=== PATIENT | male | born 1955 | race Caucasian/White ===

== ENCOUNTER 2017-04-23 01:54 | Inpatient (IN) | payer MEDICAID, MEDICARE ==
[2017-04-23] VITALS (19 sets, daily range): BP systolic 87–175; BP diastolic 54–96; PULSE 55–99; RESP 12–17; O2SAT 93–100
[~2017-04-23] VITALS: Ht 175.3 cm; Wt 86.7 kg
[~2017-04-23 01:54] MED LIST: PROZ20 PO; XVIS2550 PO
[2017-04-23] MEDS ORDERED: Dexamethasone 10 mg/mL Inj ONE (02:02)
[2017-04-23] MEDS ORDERED: Famotidine 20 mg/50 mL NS Premix IV ONE (02:02)
[2017-04-23] MEDS ORDERED: Epinephrine Racemic 2.25% 0.5 mL Inhalation Solution NEB ONE (02:05)
--- NOTE | 2017-04-23 02:35 | ED.REPORT ---
HPI-General Illness Date of Service Apr 23, 2017 ED Provider: Mark Ulloa MD Pt is an otherwise healthy 62 year old male who presents to the ED complaining of tongue swelling prior to arrival. He denies difficulty breathing currently, hives, and any other symptoms. Pt reports that he did not eat anything unusual. Per pt, he went to bed without tongue swelling then woke with severe tongue swelling. He denies any known allergies and reports that he currently takes Effexor, Seroquel, and Lopressor. Nursing Notes Stated Complaint: SWOLLEN TONGUE Chief Complaint: Allergic Reaction Nursing Notes Reviewed: Yes Allergies: Coded Allergies: No Known Allergies (Unverified Allergy, Unknown, 04/23/17) Scheduled FLUoxetine-Expunged Drug, Do not Renew! (Prozac-Expunged Drug, Do not Renew!) 20 Mg Cap 20 MG PO AM Scheduled PRN Hydroxyzine Jocy-Expunged Drug, Do Not Renew! (Vistaril-Expunged Drug, Do Not Renew!) 25 Mg Tab 25 MG PO BID PRN PRN General Time Seen by MD: 02:03 Chief Complaint Other (Tongue swelling) Hx Obtained From: Patient Arrived By: Walk-in Onset Occurred: 1 - 4 hours ago Symptom Duration: Since onset Severity: Current: No pain currently Severity: Maximum: No pain Recent Healthcare: No recent doctor visit, No recent hospitalization Similar Sx Previous: No Past Medical History Past Medical History eating disorder anxiety previous suicide attempt Substance abuse Reports: Depression Past Surgical History Denies Smoking History Current Every Day Smoker Social History Denies Ambulatory Status Independent Review of Systems Denies current difficulty breathing Full Review of Systems Constitutional: Denies: Fever Ears / Nose / Throat: Reports: Tongue swelling Allergy / Immune: Denies: Hives Complete sys rev & neg: except as marked. Physical Exam Vital Signs Vital Signs Date Time Temp Pulse Resp B/P Pulse Ox O2 Delivery O2 Flow Rate FiO2 04/23/17 03:16 97 17 175/96 100 ET Tube 04/23/17 02:32 86 12 140/78 96 Room Air 04/23/17 02:17 83 14 98 Room Air 04/23/17 02:02 36.5 99 17 147/94 99 Room Air Initial VS: Reviewed Head / Eyes: Atraumatic, Normocephalic Neck: Supple, Full range of motion Respiratory: Breath sounds normal, Clear to auscultation, No respiratory distress Cardiovascular: Regular rate & rhythm, Heart sounds normal, Intact distal pulses Abdomen / GI: Soft, Non-tender Extremities: Vascular intact, Neuro intact Skin: Warm, Dry, No cyanosis Neurologic: Alert, Oriented, Nonfocal Psychiatric: Mood/affect normal, Behavior normal General/Constitutional: Awake, Alert Sitting upright. EARS/NOSE/THROAT: Massive angioedema. Swelling on the floor of the mouth. Trouble clearing secretitions. Respiratory / Chest: Breath sounds = bilat Resp Distress / Stridor: Positive: Resp distress moderate, Stridor moderate Skin: No rash, Warm, Dry Interpretation & Diagnostics Lab Results Interpretation Result Diagram: 04/23/17 0203 04/23/17 0203 Test 04/23/17 02:03 White Blood Count 3.5th/mm3 (3.8-10.1) Red Blood Count 4.72mil/mm3 (4.40-5.80) Hemoglobin 12.9g/dL (13.8-17.2) Hematocrit 39.5% (41.0-50.0) Mean Corpuscular Volume 83.7fL (81-100) Mean Corpuscular Hemoglobin 27.3pg (27.0-35.0) Mean Corpuscular Hemoglobin Concent 32.7% (32.0-37.0) Red Cell Distribution Width 13.9% (12.3-15.4) Platelet Count 180bil/L (150-400) Neutrophils (%) (Auto) 47.9% (40-74) Lymphocytes (%) (Auto) 39.1% (14-46) Monocytes (%) (Auto) 9.3% (4-12) Eosinophils (%) (Auto) 3.4% (0-5) Basophils (%) (Auto) 0.3% (0-3) Erythrocyte Sedimentation Rate 5mm/hr (0-30) Hold Purple Top Tube Received (Received) Prothrombin Time 10.3sec (8.1-12.5) Prothromb Time International Ratio 0.96ratio Activated Partial Thromboplast Time 22.6sec (22.8-33.0) Hold Blue Top Tube Received (Received) Sodium Level 141mEq/L (134-144) Potassium Level 4.1mEq/L (3.5-5.2) Chloride Level 103mEq/L (97-108) Carbon Dioxide Level 24mmol/L (18-29) Blood Urea Nitrogen 11mg/dL (8-27) Creatinine 0.86mg/dL (0.76-1.27) Estimat Glomerular Filtration Rate 96mL/min (>59) Glucose Level 114mg/dL (60-99) Calcium Level 9.3mg/dL (8.5-10.1) Magnesium Level 1.9mg/dL (1.6-2.6) Total Bilirubin 0.2mg/dL (0.0-1.2) Aspartate Amino Transf (AST/SGOT) 16U/L (0-50) Alanine Aminotransferase (ALT/SGPT) 8U/L (0-44) Alkaline Phosphatase 129U/L (25-160) Troponin T 0.010ug/L (0.0-0.011) Total Protein 7.2g/dL (6.4-8.4) Albumin 4.3g/dL (3.4-5.0) Hold Red Top Tube Received (Received) Hold [place] Top Tube Received (Received) Hold [place] Top Tube Received (Received) ECG Interpretation ECG Interpretation: Sinus rhythm with a rate of 88 Nonspecific intraventricular conduction delay Time: 02:50 Interpreted by: ED physician X-Ray Chest Interpretation Chest Xray Interpretation: Poor inspiration. Tube in good position 5 cm above eleanor. No acute findings. View: Portable, 1 view Interpretation / Wet Read by: Wet read ED physician Procedures INTUBATED at 03:10 Re-Eval/Medical Decision Med Decision/Clinical Course 62-year-old with rapid onset of angioedema of the tongue without obvious cause. This is been progressive here despite treatment. Anesthesia consulted and are here and performed an awake intubation with their scope. ENT on standby in case surgical intervention required. He tolerated that procedure well and is now sedated with propofol. Transfer to the ICU in critical condition. Source of Hx: Old records Time of Eval: 02:27 Re-Evaluation/Progress Note: Pt rechecked. He reports that he is able to breath. All questions addressed. Time of Eval: 02:30 Re-Evaluation/Progress Note: Pt rechecked. He reports no improvement with medication provided. All questions addressed. Time of Eval: 02:38 Patient Status: Condition unchanged Re-Evaluation/Progress Note: Pt rechecked. Time of Eval: 02:51 Re-Evaluation/Progress Note: Pt rechecked. Informed pt of plan for admission. Pt understands and agrees with plan for admission. All questions addressed. Consultation #1: Call Returned at: 02:32 Leather Colorer: Agrees with eval, Agrees with plan Note: Consult with Anesthesia. Discussed pt's case and need for assistance. Consultation #2: Referral / Consult Name: Viktor Springer MD Consulted With: Hospitalist Call Returned at: 03:23 Leather Colorer: Will see patient, Agrees with eval, Agrees with plan, Accepts admit Note: Discussed pt's case. Pt is going to [facility]. Counseled Regarding: Diagnosis, Lab results, Need for admission Discharge & Departure Primary Impression: Angioedema Encounter type: initial encounter Qualified Code: T78.3XXA - Angioneurotic edema, initial encounter Additional Impression: Airway obstruction Disposition: ADMITTED TO HOSPITAL Discharge Condition All VS Reviewed: Yes Condition: Stable Referrals: [facility] Crit Care Except Billable Proc Time Spent: 75-104 minutes Services Performed: Patient management by me, Time spent at bedside, Reviewing test results, Reviewing imaging, Discussing patient care, Documentation in record, Other (assisting with awake intubation and standing by for cricothyrotomy) Scribe Attestation Portions of this note were transcribed by Diana Gallagher. I, Dr. Ulloa personally performed the history, physical exam and medical decision-making; I reviewed and confirmed the accuracy of the information in the transcribed note. Signed by: Israel Kapoor, 04/23/17. copies to: [facility] Mark Ulloa MD Apr 23, 2017 02:35 Diana De Apr 23, 2017 03:01
[2017-04-23] MEDS ORDERED: 0.9% Sodium Chloride 1,000 ML IV ONE (02:43)
[2017-04-23] MEDS ORDERED: fentaNYL-PF 50 mCg/mL 2 mL Inj ONE ×2 (02:53→03:08)
[2017-04-23 02:54] LABS: BASOPHILS % (AUTO) 0.3 % (0-3); EOSINOPHILS % (AUTO) 3.4 % (0-5); MONOCYTES % (AUTO) 9.3 % (4-12); Mean Corpuscular Hemoglobin 27.3 pg (27.0-35.0); Mean Corpuscular Volume 83.7 fL (81-100); NEUTROPHILS % (AUTO) 47.9 % (40-74); Platelet Count 180 bil/L (150-400)
[2017-04-23 03:01] LABS: INR 0.96 ratio
[2017-04-23 03:06] LABS: TROPONIN T 0.01 ug/L (0.0-0.011)
[2017-04-23] MEDS ORDERED: Propofol 10,000 mCg/mL 100 mL Inj ONE (03:16)
[2017-04-23 03:17] LABS: ERYTHROCYTE SEDIMENTATION RATE 5 mm/hr (0-30)
[2017-04-23 03:19] LABS: Magnesium 1.9 mg/dL (1.6-2.6)
[2017-04-23] MEDS ORDERED: Propofol Inj 1,000,000 MCG in IV Premix 1 EACH IV SCH (03:20)
[2017-04-23] MEDS ORDERED: Polyethylene Glycol (PEG) 17 Gm Powder PO PRN (03:35)
[2017-04-23] MEDS ORDERED: Senna-Docusate 8.6-50 mg Tablet PO PRN (03:35)
[2017-04-23] MEDS ORDERED: Alum-Mag Hydrox-Simeth 30 mL Suspension PO PRN (03:35)
[2017-04-23] MEDS: Propofol Inj 1,000,000 MCG in IV Premix 1 EACH IV SCH ×6 (03:38→21:40)
[2017-04-23] MEDS: fentaNYL 2,500 mCg/250 mL 2,500 MCG in IV Premix 1 EACH IV SCH (05:19)
--- NOTE | 2017-04-23 05:20 | PCM.HPMED ---
Subjective Date of Service Apr 23, 2017 Primary Provider: Admitting Physician: Viktor Springer MD Primary Care Physician: Ellen Attending Physician: Viktor Springer MD Admit Status: From the Emergency Department Chief Complaint: Tongue swelling History of Present Illness: Nasim Lew is a 62 year old male with a history of anxiety, depression and prior psychiatric admission in 2011 for suicidal ideation who presented to the ED for sudden onset of tongue swelling. History obtained via chart review as patient is intubated and sedated on arrival to CCU. The patient stated that he is otherwise healthy and denied difficulty breathing, hives or any other symptoms. He denied any change in medications or diet and was without symptoms when he went to bed. He later woke up due to tongue swelling and decided he better go to the hospital. He denied any known allergies and current medications include Effexor, Seroquel, and Lopressor. In the ED he was afebrile and hemodynamically stable with a SpO2 of 99% on room air. He received 1mg epinephrine, 50mg diphenhydramine, 20mg Decadron, Pepcid 20mg, racemic epinephrine with modest improvement. Subsequently he was intubated without incident in the emergency department. ECG showed sinus rhythm with a rate of 88 and a nonspecific intraventricular conduction delay. Review of Systems: Unable to perform complete review of systems secondary to patient condition. Allergies Coded Allergies: No Known Allergies (Unverified Allergy, Unknown, 04/23/17) Home Medications Medication rec not completed from overnight at the time of admission. AM team to confirm medications and order as appropriate. As per most recent record. Fluoxetine- 20 MG PO AM Hydroxyzine Jocy-25 MG PO BID PRN Effexor, Seroquel, and Lopressor PMH Depression Bipolar disorder Anxiety History of polysubstance abuse. Hypertension Eating disorder Previous suicide attempt Substance abuse Surgical History Unable to obtain secondary to patient condition. Patient denied surgical history in the ED. Family History Unable to obtain secondary to patient condition. Patient denied surgical history in the ED. During previous admission patient reported family history of mental health issues. 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 Responding appropriately. HEENT: Localized swelling of the tongue, ETT in place with notable protrusion of the tongue and significant submandibular swelling that is firm to palpation without erythema or warmth. PERRL, no scleral icterus. Mucous membranes moist/ pink. Neck: Supple with full range of motion. No JVD or bruits. Cardiovascular: Regular rate and rhythm with no murmurs Pulmonary: Mechanically ventilated. Symmetric chest rise with equal air entry bilaterally. Lungs clear to auscultation. Abdomen: Soft, non-tender, non-distended, bowel tones present. No masses appreciated. Extremities: Warm, dry with no edema or cyanosis. Skin: No rashes, ulcers, or subcutaneous nodules appreciated. Neurological: Cranial nerves grossly intact. No focal motor or sensory deficit. Normal muscle strength, tone, and bulk. Psychiatric: Appropriate for situation. Unable to speak but appears alert and oriented, responding appropriately. Lab and Diagnostics Labs Laboratory Tests Test 04/23/17 02:03 04/23/17 04:00 White Blood Count 3.5th/mm3 (3.8-10.1) Red Blood Count 4.72mil/mm3 (4.40-5.80) Hemoglobin 12.9g/dL (13.8-17.2) Hematocrit 39.5% (41.0-50.0) Mean Corpuscular Volume 83.7fL (81-100) Mean Corpuscular Hemoglobin 27.3pg (27.0-35.0) Mean Corpuscular Hemoglobin Concent 32.7% (32.0-37.0) Red Cell Distribution Width 13.9% (12.3-15.4) Platelet Count 180bil/L (150-400) Neutrophils (%) (Auto) 47.9% (40-74) Lymphocytes (%) (Auto) 39.1% (14-46) Monocytes (%) (Auto) 9.3% (4-12) Eosinophils (%) (Auto) 3.4% (0-5) Basophils (%) (Auto) 0.3% (0-3) Erythrocyte Sedimentation Rate 5mm/hr (0-30) Hold Purple Top Tube Received (Received) Prothrombin Time 10.3sec (8.1-12.5) Prothromb Time International Ratio 0.96ratio Activated Partial Thromboplast Time 22.6sec (22.8-33.0) Hold Blue Top Tube Received (Received) Sodium Level 141mEq/L (134-144) Potassium Level 4.1mEq/L (3.5-5.2) Chloride Level 103mEq/L (97-108) Carbon Dioxide Level 24mmol/L (18-29) Blood Urea Nitrogen 11mg/dL (8-27) Creatinine 0.86mg/dL (0.76-1.27) Estimat Glomerular Filtration Rate 96mL/min (>59) Glucose Level 114mg/dL (60-99) Calcium Level 9.3mg/dL (8.5-10.1) Magnesium Level 1.9mg/dL (1.6-2.6) Total Bilirubin 0.2mg/dL (0.0-1.2) Aspartate Amino Transf (AST/SGOT) 16U/L (0-50) Alanine Aminotransferase (ALT/SGPT) 8U/L (0-44) Alkaline Phosphatase 129U/L (25-160) Troponin T 0.010ug/L (0.0-0.011) Total Protein 7.2g/dL (6.4-8.4) Albumin 4.3g/dL (3.4-5.0) Hold Red Top Tube Received (Received) Hold [place] Top Tube Received (Received) Hold [place] Top Tube Received (Received) Hold Urine Received (Received) Result Diagram: 04/23/1720204/23/17202 Assessment & Plan 62 year old gentleman with a history of anxiety, depression and prior psychiatric admission for suicidal ideation in 2011 who presented to the ED with the complaint of sudden onset of tongue swelling. Intubated in the ED and admitted to the CCU for further evaluation and management of angioedema. Acute Respiratory Failure secondary to Angioedema, acute. Present on admission. Active. -Uncertain etiology. Possibly secondary to medication reaction (not taking an NICKOLAS-i, and denied new medications), unknown antigen exposure (food or environmental including). -Patient denied change in diet or new medications. Current meds: Metoprolol ( Lopressor), Effexor, and Seroquel. Denied known allergies, urticaria, or systemic symptoms. -Received 1mg epinephrine, 50mg diphenhydramine, 20mg dexamethasone, ranitidine 20mg, racemic epinephrine with modest improvement. -Continue Solu-medrol 125mg IV q6h, diphenhydramine 50mg IV , and ranitidine 20mg -Ventilator support with breathing trials as able Depression, chronic. Present on admission. Presumed Stable. -Patient with history of unspecified depressive disorder as well as remote diagnosis of bipolar disorder. Psychiatric admission in 2014 for suicidal ideation. -Reported medications: Effexor and Seroquel. -Held home Effexor, Seroquel on admission -Resume when appropriate Anxiety, chronic. Present on admission. Presumed Stable. -Held home Effexor, Seroquel on admission -Fentanyl, propofol for analgeisa/sedation. Hypertension, chronic. Present on admission. Active. -BP 120s-140s systolic. Patient reported metoprolol (Lopressor) -Unlikely the cause for the angioedema but held home metoprolol on admission PRN: Acetaminophen-fever/headache/mild/moderate pain Antiemetics, as needed Bowel regimen, as needed. Disposition: Patient admitted under inpatient status with expected length of stay > 2 midnights for severity of present symptoms, complexities of treatment plan and risk for adverse event. Pain Evaluation: Adequate Pain Control GI Prophylaxis: H2 juan carlos VTE Prophylaxis: Sub-Q Heparin (Unfractionated) Resuscitation Status: CPR: Attempt Resuscitation Time spent 1 hour critical care time spend Attending Statement The patient was seen and examined together with Dr. Hurst on 04/23 and I agree with the history, exam and plan as outlined in the note above. Nkechi Hurst DO Apr 23, 2017 03:42 Viktor Springer MD Apr 23, 2017 19:06
--- NOTE | 2017-04-23 07:55 | NUR ---
NUTRITION ASSESSMENT: ASSESS:62 YO male presented to the ED with sudden onset of tongue swelling. Patient was intubated and transferred to CCU for further evaluation and management of angioedema. PMHx:Depression, bipolar disorder, anxiety, polysubstance abuse, HTN, eating disorder, previous suicide attempt. DIET:NPO. LABS: Reviewed. Glu 114. MEDICATIONS: Reviewed. Fentanyl, propofol, solu-medrol. NUTRITION FOCUSED PHYSICAL ASSESSMENT: GI symptoms / stool: No stool reported.Yobani: No Yobani documented. Skin Integrity: No issues reported. ANTHROPOMETRICS: Current Wt: 86.1 kgBMI: 28.0 kg/m2. IBW: 72.73 kg (118% IBW) ESTIMATED NEEDS (VENT BMI < 30): Calories: 1722 - 2153 kcal (20 - 25 kcal / kg BW) Protein: 129 - 155 g protein (1.5 - 1.8 g / kb BW) Fluid: Approx. 2583 mL (30 mL / kg BW) NUTRITION DIAGNOSIS: 1)Inadequate oral intake related to inability to consume sufficient energy, as evidenced by NPO / vent status, altered GI function. INTERVENTION: 1) In the event pt. unable to be extubated today, recommend initiate enteral feeding as follows. Recommend Jevity 1.5 at 10 ml/hr. Once tolerance established, recommend advance 10 ml every 4 hr. to goal rate 60 mL/hr. Flush dose 40 mL H2O every 40 hr. Enteral feeding at goal would provide 1980 kcal, 84 g protein, sufficient to meet 100% kcal / 62% protein needs. 2) Once enteral feeding tolerance established, recommend add 1 packet ProSource liquid protein 5 times per day to meet 100% protein needs (139 g protein). MONITOR/EVALUATE: NPO / vent status, orders for nutrition support, labs, GI/nutrition status. Follow up per high nutrition risk guidelines.
--- NOTE | 2017-04-23 08:08 | PROCED ---
[address] [address] PROCEDURE NOTE PATIENT: ROYA ZAMORANO : 1955 MR#: [id number] ADMIT: 04/23/2017 JOB ID: [id number] DATE OF SERVICE: 04/23/2017 POSTOPERATIVE DIAGNOSIS(ES): PREOPERATIVE DIAGNOSIS(ES): SURGEON: PROCEDURE: Intubation. INDICATION: Angioedema. Performed by myself Edward Reina, assisted by Shaheed Paz. Complications are none. PROCEDURE: Called by ED physician for emergent intubation in this patient with angioedema presenting with large swollen tongue and submandibular swelling. The patient had received steroid treatment and racemic epi with no benefit and so he required intubation. His respiratory status was okay at this point, though he was having difficulty handling his own secretions and so intubation was indicated. At our direction, the patient was given anxiolysis with a total of 2 mg of midazolam and 100 mcg of fentanyl. We nebulized the airway with 4% lidocaine. Then attempted to visualize the glottic opening with a Mac 3 blade and the glide scope. The patient's tongue was so swollen that the glide scope had difficulty entering the oral cavity actually and then we were not able to see anything meaningful posterior or inferior to the base of the tongue. We tried on two attempts to do this and it was unsuccessful. The patient tolerated it moderately well following the topicalization of the airway. At this point, we decided to attempt intubation with fiberoptic. It was passed easily and we could enter the trachea. A 7.5 ET tube was then passed over top of the fiberoptic scope and into the trachea. Fiberoptic scope was removed and endotracheal placement was confirmed via chloremic change. The patient was then immediately given 100 mg of propofol by the RN. The care was turned over to the respiratory therapy for securing the tube and the ED physician for further sedation of the patient. Dr. Pruitt was at bedside for the procedure as was the ED physician.
--- NOTE | 2017-04-23 08:18 | DRSVH ---
PROCEDURE: X-RAY CHEST ONE VIEW, PORTABLE ([id number]) INDICATIONS: angioedema TECHNIQUE: One view of the chest was acquired. COMPARISON: None. FINDINGS: Surgical changes and devices: ET tube with tip 5.6 CM above the telma. Lungs and pleura: No pleural effusions or pneumothorax. Lungs are clear. Shallow inspiration. Mediastinum: Mediastinal contours appear normal. Heart size is normal. Bones and chest wall: No suspicious bony lesions. Overlying soft tissues appear unremarkable. IMPRESSION: ET tube at the superior margin of normal positioning. Shallow inspiration. Dictated by: Juan Francisco Adam M.D. on 04/23/2017 at 8:16 Approved by: Juan Francisco Adam M.D. on 04/23/2017 at 8:16
[2017-04-23] MEDS: Heparin 5,000 Unit/mL Inj SUBQ SCH ×3 (08:41→22:56)
[2017-04-23] MEDS: MethylprednisoLONE Sodium Succinate 62.5 mg/mL 2 mL Inj IVPUSH SCH ×3 (09:04→20:07)
[2017-04-23] MEDS: Famotidine Inj 20 MG in IV Premix 1 EACH IV SCH ×2 (09:04→20:07)
--- NOTE | 2017-04-23 11:42 | DRSVH ---
PROCEDURE: CT NECK SOFT TISSUES WITH CONTRAST ([id number]) INDICATIONS: Submandibular swelling TECHNIQUE: After the administration of intravenous contrast, 3.0 mm axial sections acquired from the sella to th e aortic arch. Additional oblique axial 3.0 mm sections acquired through the pharynx. 3 mm thick co noelle reformats were generated. For radiation dose reduction, the following was used: automated exp osure control. COMPARISON: None. FINDINGS: Image quality: Excellent. Lymph nodes: No enlarged lymph nodes seen throughout the neck. Vessels: Visualized vasculature appears patent. Neck spaces: The oropharynx, nasopharynx, and pharynx demonstrate no mucosal lesions. The vocal cor ds, false vocal cords and pyriform sinuses all appear normal. There is mild swelling and enhancement of the epiglottis, vallecula, and tongue base likely related to intubation. Extramucosal spaces jane ear unremarkable. ET tube and enteric tube in place. Glands: The parotid and submandibular glands appear normal. Thyroid gland is normal. Miscellaneous: Visualized brain and orbits appear normal. Lung apices appear clear. Superficial so ft tissues demonstrate moderate edema inferior to the parotid lines and posterior to the submandibula r glands.. Bones: No suspicious bony lesions. Visualized sinuses and mastoids appear unremarkable. IMPRESSION: 1. ET and enteric tube in place. There are secretions and possible mild swelling in the oropharynx an d nasopharynx. 2. There is soft tissue swelling and edema between the parotid and submandibular glands bilaterally. The glands and cells appear normal. This finding may account for the clinically apparent swelling. No drainable fluid collections. Dictated by: Juan Francisco Adam M.D. on 04/23/2017 at 11:27 Approved by: Juan Francisco Adam M.D. on 04/23/2017 at 11:41
[2017-04-23] MEDS: Chlorhexidine 0.12% 15 mL Oral Solution MT SCH ×4 (13:01→22:55)
--- NOTE | 2017-04-23 13:27 | NUR ---
1100-Pt. transported to CT on portable vent with same settings as Servo i. Fio2 50%. 1120-After procedure, pt. transported to room on portable vent and placed back on Servo i at current settings. Vent check done.
--- NOTE | 2017-04-23 13:46 | CONS ---
[address] [address] CONSULTATION REPORT PATIENT: ROYA ZAMORANO : 1955 MR#: [id number] ADMIT: 04/23/2017 JOB ID: [id number] DATE OF SERVICE: 04/23/2017 PULMONARY CRITICAL CARE CONSULT: REQUESTING PHYSICIAN: Denise Harley DO REASON FOR CONSULTATION: Upper airway obstruction. HISTORY OF PRESENT ILLNESS: The patient is a 62-year-old male who apparently noted swelling of his tongue the day of admission. No other symptoms were apparently present. Denial of sore throat, cough, sputum production, rash. No prior head and neck problems. The patient was treated in the emergency department with epinephrine, diphenhydramine, Decadron,Pepcid, and racemic epinephrine with only partial improvement. Decision was made to intubated the patient. This was done without incident. The patient is unable to give any history at the current time, being intubated and sedated on the ventilator. REVIEW OF SYSTEMS: Unable to obtain. MEDICATIONS: Include Effexor, Seroquel, and Lopressor. ALLERGIES: None known. PAST MEDICAL HISTORY: Taken from the chart include depression, bipolar disorder, anxiety, history of polysubstance abuse, hypertension. Unable to obtain any other history from the patient. SOCIAL HISTORY: Apparently is a current smoker. OBJECTIVE: Temperature is 36.3. Pulse 60. Respiratory rate 16 with ventilator set at 16. Blood pressure 103/65. O2 sat on FiO2 of 30%, PEEP of 5 is 98%. General appearance: Well-developed, well-nourished male, sedated, intubated on ventilator. The patient was comfortable following the ventilator at the time my evaluation. With interventions became a bit awake and had some difficulty with coughing and required a little bit of further sedation. Eyes: Conjunctivae are pink and moist. Sclerae anicteric. Pupils about 3 mm and reactive. Nose could not be examined. Tongue protruding from his mouth to some extent. Submandibular swelling, a bit firm. No overlying erythema or fluctuance. Nursing reports that this is improved over the past a few hours. Chest: Clear, with good breath sounds bilaterally. Heart: Regular rhythm. Heart tones normal. Abdomen: Soft. A few bowel tones noted. Extremities: No clubbing, cyanosis, or pretibial edema. Skin: No rash. LABORATORY DATA: Shows a white count of 3500 with a normal differential. Hemoglobin 12.9. Platelet count 180,000. Lytes are normal. Liver function tests normal. Troponin-T 0.01. Total protein 7.2, albumin 4.3. IMAGING: Chest x-ray shows lungs are clear. A CT of the soft tissues of the neck shows secretions and possibly some mild swelling in the area of the oropharynx and nasopharynx. Soft tissue swelling and edema between the parotid and submandibular glands bilaterally. The glands themselves appear normal. ASSESSMENT: Upper airway obstruction secondary to upper airway edema. Etiology unclear. No historical support for infection. Therefore, for the moment will continue with the current regimen of anti-inflammatory medicines including methylprednisone, diphenhydramine, and Pepcid. At this point we should follow patient for the next day or two, reevaluating his course. Follow him intubated over the weekend, reevaluating him for possible extubation early next week, depending on his course. Not particularly aware that any of his medications could be causing this problem. Will have to review the literature regarding stated medications and obtain a full list of his completed medication list. PLAN: 1. Continue current vent settings. 2. Continue current medication interventions. Time spent in critical care: 60 min Thank you so much, Dr. Harley, for asking the Pulmonary service to become involved in the evaluation of this most interesting individual. We will follow his respiratory status closely along with you. OG
--- NOTE | 2017-04-23 14:24 | PCM.PNMED ---
Subjective Date of Service Apr 23, 2017 Subjective Subjective: No history was obtained due to the patient being sedated on the vent. Events Overnight: No acute events overnight. ROS: Due to the patient being comatose, a review of systems was unable to be obtained. Exam Vital Signs Vital Sign - Last Date Time Temp Pulse Resp B/P Pulse Ox O2 Delivery O2 Flow Rate FiO2 04/23/17 11:20 70 137/76 98 30 04/23/17 08:00 Ventilator 04/23/17 08:00 36.3 16 Intake and Output 04/22/17 04/22/17 04/23/17 Cumulative From/Thru 15:00 23:00 07:00 04/23/17 02:02 - 04/23/17 06:34 Intake Total 1055 ml 1055 ml Output Total 150 ml 150 ml Balance 905 ml 905 ml Intake IV Total 1055 ml 1055 ml Output Urine Total 150 ml 150 ml Exam General: Sedated, breathing assisted with ventilation, nasogastric tube in place , well-developed, well-nourished HEENT: Normocephalic, atraumatic. External ears without defect. Pupils equal, round, and reactive to light and accommodation. Anicteric sclerae, moist conjunctivae. Severe swelling of the anterior neck between the parotid and cricoid cartilage. Increased oral secretions, edema of the tongue protruding out side of the mouth. Cardiovascular: Regular rate and rhythm with no murmurs, rubs, or gallops appreciated Pulmonary: Patient breathing appropriately on the vent. Coarse breath sounds due to ventilation. Abdomen: Bowel tones present. Soft, nontender, nondistended. Extremities: No clubbing, cyanosis Skin: Normal temperature, turgor, and texture; no rash, ulcers, or subcutaneous nodules appreciated. Neurological: Unable to assess due to ventilation status Psychiatric: Unable to assess due to ventilation status IVs and Medications IV Fluids 400 mL normal saline delivered with IV medications. Medications Reviewed: Medications were reviewed in detail Medications High-risk medications include: Propofol Fentanyl Lab and Diagnostics Result Diagram: 04/23/1720204/23/17202 Microbiology MRSA screen negative X-Rays, CTs and MRIs CT NECK SOFT TISSUES WITH CONTRAST IMPRESSION: 1. ET and enteric tube in place. There are secretions and possible mild swelling in the oropharynx and nasopharynx. 2. There is soft tissue swelling and edema between the parotid and submandibular glands bilaterally. The glands and cells appear normal. This finding may account for the clinically apparent swelling. No drainable fluid collections. Dictated by: Juan Francisco Adam M.D. on 04/23/2017 at 11:27 Approved by: Juan Francisco Adam M.D. on 04/23/2017 at 11:41 X-RAY CHEST ONE VIEW, PORTABLE IMPRESSION: ET tube at the superior margin of normal positioning. Shallow inspiration. Dictated by: Juan Francisco Adam M.D. on 04/23/2017 at 8:16 Approved by: Juan Francisco Adam M.D. on 04/23/2017 at 8:16 . Assessment & Plan 62 year old gentleman with a history of anxiety, depression and prior psychiatric admission for suicidal ideation in 2011 who presented to the ED with the complaint of sudden onset of tongue swelling. Intubated in the ED and admitted to the CCU for further evaluation and management of angioedema. Angioedema, acute. Present on admission. Active. -Uncertain etiology. Possibly secondary to medication reaction (not taking an NICKOLAS-i, and denied new medications), unknown antigen exposure (food or environmental including). -Patient denied change in diet or new medications. Current meds: Metoprolol ( Lopressor), Effexor, and Seroquel. Denied known allergies, urticaria, or systemic symptoms. -Received 1mg epinephrine, 50mg diphenhydramine, 20mg dexamethasone, ranitidine 20mg, racemic epinephrine with modest improvement. -Continue Solu-medrol 125mg IV q6h, diphenhydramine 50mg IV , and ranitidine 20mg -Continue on ventilator support until significant improvement of anterior neck swelling. -CT shows soft tissue swelling, with no drainable fluid collections. Report as above -Total complement pending Depression, chronic. Present on admission. Presumed Stable. -Patient with history of unspecified depressive disorder as well as remote diagnosis of bipolar disorder. Psychiatric admission in 2014 for suicidal ideation. -Reported medications: Effexor and Seroquel. -Held home Effexor, Seroquel on admission -Resume when appropriate Anxiety, chronic. Present on admission. Presumed Stable. -Held home Effexor, Seroquel on admission -Fentanyl, propofol for analgeisa/sedation. Hypertension, chronic. Present on admission. Active. -BP 120s-140s systolic. Patient reported he takes metoprolol (Lopressor) -Unlikely the cause for the angioedema but held home metoprolol on admission PRN: Acetaminophen-fever/headache/mild/moderate pain Antiemetics, as needed Bowel regimen, as needed. Disposition: Patient will likely require 4-6 days of hospital therapy before discharge home. Will continue to talk with family in order to get a better history and possibility of other medications that might have been taken. GI Prophylaxis: H2 juan carlos VTE Prophylaxis: Sub-Q Heparin (Unfractionated) VTE Mechanical Devices: Intermittant Pneumatic CD Resuscitation Status: CPR: Attempt Resuscitation Attending Statement The patient was seen and examined together with Dr. Jenkins on 04/23/17 and I have added additional information to the note above. Giacomo Jenkins DO Apr 23, 2017 14:24 Denise Harley DO Apr 23, 2017 15:19
--- NOTE | 2017-04-23 15:07 | PCM.ADCARE ---
Advance Care Planning Note CODE STATUS: Date: 04/23/2017 Purpose of encounter: Goals of care Parties in attendance: Robert Lew (Son) Sandy Dandy (Sister) Dr. Harley Decisional capacity: Patient is currently sedated and intubated Diagnosis: Angioedema currently intubated Depression Anxiety Hypertension Plan: The patient's family is aware of the current diagnosis and would like for the patient to continue to be full code. The patient's family understands that this means for chest compressions, intubation, pressors, and all measures involved with CPR. CODE STATUS: Full code Time spent with advanced care planning: Greater than 16 minutes Denise Harley DO Apr 23, 2017 15:07
--- NOTE | 2017-04-23 16:05 | NUR ---
Admit/Shift note... Pt received from ER at 0445 this am. Restless on arrival . Started on Fentanyl gtt and this was effective in calming pt. Neck swollen and tongue protruding slightly. This has been resolving throughout this shift and tongue is less hard. Pt has been intermittently wakeful and nodding appropriately. Noted to have a friend listed as a contact on facesheet. When asked if I could reach this person to let them know that he is here he nodded yes. In calling the person listed Sandy Dorman, this was infact his sister. She has been here at the bedside and has reached his son and daughter. They are willing to go to the pt's trailer to see if he has evidence of taking any new meds or food that may help diagnose his angioedema cause. We attempted to get permission from the pt to release his house keys(which are locked in the hospital safe) to give them to his son but the pt became too agitated and restless when awakened to get a yes or no answer. Med list from [facility] obtained and shown to Dr Harley.
[2017-04-23] MEDS ORDERED: Dexmedetomidine Inj 400 MCG in 0.9% Sodium Chloride 100 ML IV SCH (20:32)
[2017-04-23] MEDS: Dexmedetomidine 400 mCg/100 mL 400 MCG in IV Premix 1 EACH IV SCH (21:36)
[2017-04-23] MEDS: 0.9% Sodium Chloride 1,000 ML IV SCH (22:55)
[2017-04-24] VITALS (14 sets, daily range): BP systolic 84–150; BP diastolic 51–92; PULSE 54–104; RESP 16–22; O2SAT 88–99
[2017-04-24] MEDS: Propofol Inj 1,000,000 MCG in IV Premix 1 EACH IV SCH ×6 (00:41→21:19)
[2017-04-24] MEDS ORDERED: 0.9% Sodium Chloride 500 ML IV ONE (02:05)
[2017-04-24] MEDS: MethylprednisoLONE Sodium Succinate 62.5 mg/mL 2 mL Inj IVPUSH SCH ×4 (02:27→21:18)
[2017-04-24 02:33] LABS: Mean Corpuscular Hemoglobin 27.2 pg (27.0-35.0); Mean Corpuscular Volume 79.8 fL (81-100)
[2017-04-24] MEDS: 0.9% Sodium Chloride 1,000 ML IV SCH ×2 (04:30→12:34)
[2017-04-24] MEDS: Chlorhexidine 0.12% 15 mL Oral Solution MT SCH ×5 (04:31→21:04)
[2017-04-24] MEDS: fentaNYL 2,500 mCg/250 mL 2,500 MCG in IV Premix 1 EACH IV SCH (04:33)
--- NOTE | 2017-04-24 04:38 | ABG ---
DateTimeAnalyzed 04:30:01 -_ pH ____7.393 - 7.350 7.450 pCO2 ___32.4__ -mmHg 35.0 45.0 pO2 ___77.8__ -mmHg 69.0 116 HCO3- ___19.7__ -mmol/L 22.0 26.0 ABE ___-4.7__ -mmol/L -2.0 2.0 tHb ___11.4__ -g/dL 12.0 18.0 O2Hb ___95.4__ -% COHb ____1.6__ -% 0.0 1.5 MetHb ____0.0__ -% 0.4 1.5 sO2 ___96.9__ -% FIO2 ___30.0__ -% PEEP ____5.0__ -cmH2O Set_RR 16 -b/min Vt __500.0__ -L Drawn By MK - Date/Time Notified____ 04:38:00 -_ Spontaneous_RR 16 -b/min Oxygen Device 1 VENTILATOR - K+ ____4.8__ -mmol/L 3.5 5.0 tO2 ___15.4__ -Vol% OrderingPhysicianInitials mf - Markie test N/A -
[2017-04-24 05:09] LABS: APPEARANCE,URINE CLEAR (CLEAR,HAZY); COLOR,URINE YELLOW (YELLOW); OCCULT BLOOD,URINE NEGATIVE (NEGATIVE); UROBILINOGEN,URINE NORMAL (NORMAL)
--- NOTE | 2017-04-24 06:34 | NUR ---
Tam/Bradycardia/Hypotension At start of shift, propofol at 50mcg/kg/minute, fentanyl at 50. Pt awake, anxious, pulling at restraints. Order received for Precedex IV. Infusion started at 0.2 per order. Pt quickly became much less anxious/agitated but became bradycardic between 40 and 50bpm. Precedex quickly stopped. MD made aware. PRN Ativan 1mg IVP doses ordered with great success. Pt's HR and BP didn't drop with 2mg IV Ativan 15 minutes apart. MD called regarding the patient's poor urine output during day shift, pt's urine output so far had only been 200ml of brown, cloudy urine with sediment. Order received for 500ml NS bolus and to repeat x1. Pt began making urine again but only had 260ml output for the shift. NS started at 100ml/hour. MD also made aware of the patient's hypotension. MAPs ranging from 57-65. No additional orders at this time. Propofol 30mcg/kg/minute Fentanyl 75mcg/hour NS 100ml/hour Ativan 1mg IVP [id number] PRN
[2017-04-24] MEDS: Famotidine Inj 20 MG in IV Premix 1 EACH IV SCH ×2 (07:44→21:17)
[2017-04-24] MEDS: Heparin 5,000 Unit/mL Inj SUBQ SCH ×3 (07:46→21:18)
--- NOTE | 2017-04-24 17:08 | PROG NOTE ---
[address] [address] PROGRESS NOTE PATIENT: ROYA ZAMORANO : 1955 MR#: [id number] ADMIT: 04/23/2017 JOB ID: [id number] DATE: 04/24/2017 PULMONARY VENTILATOR MANAGEMENT FOLLOWUP NOTE: PROBLEM: Upper airway angioedema. SUBJECTIVE: The patient is uncomfortable with tube, otherwise breathing comfortably. Not enamored of the bed. OBJECTIVE: Temperature 37, pulse 75-89, respiratory rate 18, blood pressure 106/54. O2 sat on FiO2 30%, PEEP of 5, is 94%. General appearance: Sedated. Awakens if intervened with. Slightly agitated but understands the discussion. Seems to settle back down. Eyes: Conjunctivae are pink. Neck: The submandibular swelling seems much less. Tongue no longer protruding through the teeth. Chest has fair breath sounds bilaterally. Lung bryant are clear. Good breath sounds bilaterally. Heart: Regular rhythm. Heart tones normal. Abdomen: Soft. Some bowel tones noted. Mental status: Patient awake and alert. Seems to have overcome his overdose nicely. LABORATORY DATA: Shows a white count of 7200. No differential available. Hemoglobin stable at 12.1. Platelet count 195,000. Lytes are normal. BUN 17, creatinine 0.9. Calcium is 8.5 with an albumin of 3.7. Total bilirubin, alkaline phosphatase, and transaminases are normal. Tox screen positive for benzodiazepines, cocaine, and cannabinoids. Arterial blood gases on an FiO2 of 30%, PEEP of 5, rate of 16, tidal volume of 500, shows a pO2 of 77, pCO2 of 32, pH of 7.39. ASSESSMENT: Upper airway angioedema. Possibly related to the various drugs he was taking. Initially he took only Effexor, Seroquel, and Lopressor. Now drug screen [place] positive. Swelling is markedly improved. No particular pulmonary problems at this time. Would continue current vent settings. Reassess in the morning. Might consider extubation with Anesthesia possibly ENT present. PLAN: Consider extubation in next 24-48 hours. Considering having Anesthesia or ENT on site.
--- NOTE | 2017-04-24 18:49 | NUR ---
Agitation/ Angioedema.. Swelling has continued to reduce and pt's tongue is almost wnl. Remains on same vent settings. Has been increasingly restless this afternoon requiring extra sedation boluses and increase of gtts. Family has been updated on status and plan of care.
--- NOTE | 2017-04-24 19:13 | PCM.PNMED ---
Subjective Date of Service Apr 24, 2017 Subjective The patient's tongue swelling is much improved today, however his throat remains quite swollen thus he is still intubated for airway protection. He is alert but either cannot or will not follow commands. He is otherwise essentially unable to provide any ROS. No significant overnight events Comprehensive ROS unable to be obtained in intubated and sedated patient. Exam Vital Signs Vital Sign - Last Date Time Temp Pulse Resp B/P Pulse Ox O2 Delivery O2 Flow Rate FiO2 04/24/17 16:00 Supplement Oxygen 04/24/17 15:30 62 112/59 94 30 04/24/17 11:53 37.0 18 Intake and Output 04/23/17 04/23/17 04/24/17 Cumulative From/Thru 15:00 23:00 07:00 04/23/17 02:02 - 04/24/17 06:00 Intake Total 490 ml 1980 ml 3525 ml Output Total 350 ml 290 ml 790 ml Balance 140 ml 1690 ml 2735 ml Intake Oral 0 ml 0 ml IV Total 490 ml 1980 ml 3525 ml Output Urine Total 300 ml 260 ml 710 ml Gastric Drainage Total 50 ml 30 ml 80 ml # Bowel Movements 0 0 0 Exam Gen: Alert but not oriented intubated man on sedation Neck: Supple, non tender, R IJ in place HEENT: PERRL, EOMI, no scleral icterus. significant swelling of submandibular tissue, weak air lead around ET tube CV: RRR, no murmurs rubs or gallops Resp: Lungs CTA BL, no wheezing rales or rhonchi Abd: Soft, no rebound tenderness masses or guarding Extr: No clubbing cyanosis or edema Neuro: CN 2-12 grossly intact, no focal neurologic deficit IVs and Medications Medications Reviewed: Medications were reviewed in detail Lab and Diagnostics Item Value Date Time Red Blood Count 4.45 mil/mm3 04/24/17 021 Mean Corpuscular Volume 79.8 fL L 04/24/17 021 Mean Corpuscular Hemoglobin 27.2 pg 04/24/17209 Mean Corpuscular Hemoglobin Concent 34.1 % 04/24/17209 Red Cell Distribution Width 14.2 % 04/24/17 021 Estimat Glomerular Filtration Rate 89 mL/min 04/24/17 021 Calcium Level 8.5 mg/dL 04/24/17 0210 Total Bilirubin 0.2 mg/dL 04/24/17209 Aspartate Amino Transf (AST/SGOT) 15 U/L 04/24/17209 Alanine Aminotransferase (ALT/SGPT) 6 U/L 04/24/17209 Alkaline Phosphatase 100 U/L 04/24/17209 Total Creatine Kinase 47 U/L 04/24/17209 Total Protein 5.9 g/dL L 04/24/17209 Albumin 3.7 g/dL 04/24/17209 Result Diagram: 04/24/1720904/24/17209 Microbiology MRSA screen negative X-Rays, CTs and MRIs CT NECK SOFT TISSUES WITH CONTRAST IMPRESSION: 1. ET and enteric tube in place. There are secretions and possible mild swelling in the oropharynx and nasopharynx. 2. There is soft tissue swelling and edema between the parotid and submandibular glands bilaterally. The glands and cells appear normal. This finding may account for the clinically apparent swelling. No drainable fluid collections. Dictated by: Juan Francisco Adam M.D. on 04/23/2017 at 11:27 Approved by: Juan Francisco Adam M.D. on 04/23/2017 at 11:41 X-RAY CHEST ONE VIEW, PORTABLE IMPRESSION: ET tube at the superior margin of normal positioning. Shallow inspiration. Dictated by: Juan Francisco Adam M.D. on 04/23/2017 at 8:16 Approved by: Juan Francisco Adam M.D. on 04/23/2017 at 8:16 . Assessment & Plan 62 year old gentleman with a history of anxiety, depression and prior psychiatric admission for suicidal ideation in 2011 who presented to the ED with the complaint of sudden onset of tongue swelling. Intubated in the ED and admitted to the CCU for further evaluation and management of angioedema. Acute Respiratory Failure secondary to Angioedema, acute. Present on admission. Active. -Uncertain etiology. Possible secondary to inhaled Cocaine -Patient denied change in diet or new medications. Current meds: Metoprolol ( Lopressor), Effexor, and Seroquel. Denied known allergies, urticaria, or systemic symptoms. -upon arrival patient received 1mg epinephrine, 50mg diphenhydramine, 20mg dexamethasone, ranitidine 20mg, racemic epinephrine with modest improvement. -Continue Solu-medrol 125mg IV q6h, diphenhydramine 50mg IV , and ranitidine 20mg -Ventilator support with breathing trials as able -Improved HEENT swelling with small air leak around ET tube Depression, chronic. Present on admission. Presumed Stable. -Patient with history of unspecified depressive disorder as well as remote diagnosis of bipolar disorder. Psychiatric admission in 2014 for suicidal ideation. -Reported medications: Effexor and Seroquel. -Held home Effexor, Seroquel on admission -Resume Effexor per NG tube today Anxiety, chronic. Present on admission. Presumed Stable. -Held home Effexor, Seroquel on admission - Start Effexor 04/24 -Fentanyl, propofol for analgeisa/sedation. Hypertension, chronic. Present on admission. Active. -BP 120s-140s systolic. Patient reported metoprolol (Lopressor) -Unlikely the cause for the angioedema but held home metoprolol on admission PRN: Acetaminophen-fever/headache/mild/moderate pain Antiemetics, as needed Bowel regimen, as needed. Disposition: Patient's angioedema is improved today, but he continues to have significant HEENT swelling and could not be extubated today, will re-evaluate daily with anticipated DC in 3-5 days depending upon clinical course Pain Evaluation: Adequate Pain Control GI Prophylaxis: H2 juan carlos VTE Prophylaxis: Sub-Q Heparin (Unfractionated) VTE Mechanical Devices: Intermittant Pneumatic CD Resuscitation Status: CPR: Attempt Resuscitation Attending Statement The patient was seen and examined together with Dr. Levy on 04/24/17 and I have added additional information to the note above. Teofilo Levy DO Apr 24, 2017 19:13 Denise Harley DO Apr 24, 2017 19:42
[2017-04-24] MEDS: Dexmedetomidine 400 mCg/100 mL 400 MCG in IV Premix 1 EACH IV SCH (20:19)
--- NOTE | 2017-04-24 22:16 | ABG ---
DateTimeAnalyzed 22:08:00 -_ pH ____7.393 - 7.350 7.450 pCO2 ___34.7__ -mmHg 35.0 45.0 pO2 ___74.3__ -mmHg 69.0 116 HCO3- ___20.7__ -mmol/L 22.0 26.0 ABE ___-3.1__ -mmol/L -2.0 2.0 tHb ___11.1__ -g/dL 12.0 18.0 O2Hb ___93.2__ -% COHb ____0.7__ -% 0.0 1.5 MetHb ____0.9__ -% 0.4 1.5 sO2 ___94.7__ -% 25.0 FIO2 ___30.0__ -% PRVC 12 - PEEP ____5.0__ -cmH2O Vt __500.0__ -L Drawn By blf - Date/Time Notified____ 22:16:00 -_ Spontaneous_RR ___16.0__ -b/min Oxygen Device 1 VENTILATOR - Notified By blf - Notified Whom Yuri Eng RN - B 758 -mmHg tO2 ___14.6__ -Vol% Markie test _Positive -
--- NOTE | 2017-04-24 22:36 | ABG ---
DateTimeAnalyzed 22:08:00 -_ pH ____7.393 - 7.350 7.450 pCO2 ___34.7__ -mmHg 35.0 45.0 pO2 ___74.3__ -mmHg 69.0 116 HCO3- ___20.7__ -mmol/L 22.0 26.0 ABE ___-3.1__ -mmol/L -2.0 2.0 tHb ___11.1__ -g/dL 12.0 18.0 O2Hb ___93.2__ -% COHb ____0.7__ -% 0.0 1.5 MetHb ____0.9__ -% 0.4 1.5 sO2 ___94.7__ -% 25.0 FIO2 ___30.0__ -% PRVC 16 - PEEP ____5.0__ -cmH2O Vt __500.0__ -L Drawn By blf - Date/Time Notified____ 22:16:00 -_ Spontaneous_RR ___20.0__ -b/min Oxygen Device 1 VENTILATOR - Notified By blf - Notified Whom Yuri Eng RN - B 758 -mmHg tO2 ___14.6__ -Vol% Markie test _Positive -
[2017-04-25] VITALS (12 sets, daily range): BP systolic 119–164; BP diastolic 66–88; PULSE 62–93; RESP 11–17; O2SAT 93–100
[2017-04-25] MEDS: Chlorhexidine 0.12% 15 mL Oral Solution MT SCH ×7 (00:20→23:54)
[2017-04-25 02:43] LABS: BASOPHILS % (AUTO) 0 % (0-3); EOSINOPHILS % (AUTO) 0 % (0-5); Mean Corpuscular Hemoglobin 26.8 pg (27.0-35.0); Mean Corpuscular Volume 82.5 fL (81-100); NEUTROPHILS % (AUTO) 87.4 % (40-74); Platelet Count 175 bil/L (150-400)
[2017-04-25 02:54] LABS: INR 0.98 ratio
[2017-04-25 03:20] LABS: Magnesium 1.9 mg/dL (1.6-2.6); Phosphorus 2.9 mg/dL (2.5-4.9)
[2017-04-25] MEDS: 0.9% Sodium Chloride 1,000 ML IV SCH ×3 (04:30→18:18)
[2017-04-25] MEDS: Propofol Inj 1,000,000 MCG in IV Premix 1 EACH IV SCH (04:30)
[2017-04-25] MEDS: MethylprednisoLONE Sodium Succinate 62.5 mg/mL 2 mL Inj IVPUSH SCH ×4 (04:32→22:34)
[2017-04-25] MEDS: fentaNYL 2,500 mCg/250 mL 2,500 MCG in IV Premix 1 EACH IV SCH (04:33)
--- NOTE | 2017-04-25 04:53 | ABG ---
DateTimeAnalyzed 04:47:00 -_ pH ____7.390 - 7.350 7.450 pCO2 ___37.9__ -mmHg 35.0 45.0 pO2 ___86.4__ -mmHg 69.0 116 HCO3- ___22.5__ -mmol/L 22.0 26.0 ABE ___-1.6__ -mmol/L -2.0 2.0 tHb ___11.1__ -g/dL 12.0 18.0 O2Hb ___95.0__ -% COHb ____0.6__ -% 0.0 1.5 MetHb ____0.9__ -% 0.4 1.5 sO2 ___96.4__ -% 25.0 FIO2 ___40.0__ -% PRVC 16 - PEEP ____5.0__ -cmH2O Vt __500.0__ -L Drawn By blf - Date/Time Notified____ 04:52:00 -_ Spontaneous_RR ___18.0__ -b/min Oxygen Device 1 VENTILATOR - Notified By BLF - Notified Whom DARIANA ORTIZ RN - B 758 -mmHg tO2 ___14.9__ -Vol% Markie test _Positive -
--- NOTE | 2017-04-25 06:41 | NUR ---
FiO2/SpO2 When patient is sedated to maintain a RASS of -1 to -2, his RR rate is at the set of 16. ABG ordered as he was maintaining SpO2 of 87-89% while resting. FiO2 increased from 30% to 40% FiO2 by respiratory therapy. Propofol remains on at 45mcg/kg/minute and Fentanyl at 100mcg/hour. Pt awakens easily upon staff entering the room. Pt has removed his gown multiple times, pt shakes his head "yes" when asked if he was taking off his gown and covers because he was too hot. Pt's temperature trending down to normal from noc TMAX of 37.6 at start of shift.
[2017-04-25] MEDS: Heparin 5,000 Unit/mL Inj SUBQ SCH ×2 (08:05→17:03)
[2017-04-25] MEDS: Famotidine Inj 20 MG in IV Premix 1 EACH IV SCH ×2 (08:05→19:40)
[2017-04-25] MEDS ORDERED: Epinephrine Racemic 2.25% 0.5 mL Inhalation Solution NEB PRN (11:10)
--- NOTE | 2017-04-25 12:55 | NUR ---
Respiratory Pt extubated at 1105 by RT, anesthesia at bedside. Pt on RA with SpO2 92-95%, no s/sx resp distress. Swelling to neck and tongue minimal, per RN report and MD evaluation, it has significantly improved. Pt c/o sore throat, but no difficulty breathing. [employer]OMOBILE RENTAL REPRESENTATIVE in to see pt at this time, see note.
--- NOTE | 2017-04-25 13:26 | NUR ---
NUTRITION FOLLOW UP: ASSESS: 62 YO male admitted to CCU sudden onset of tongue swelling, requiring intubation. Pt extubated today. Diet advanced to stimulation. Pt has had minimal PO intake X 2 days. PMHx: Depression, bipolar disorder, anxiety, polysubstance abuse, HTN, eating disorder, previous suicide attempt. DIET: Stimulation. No PO intake recorded yet. LABS: Reviewed. Glu 155, Ca 8.1 MEDICATIONS: Reviewed. solu-medrol. GI: No stool reported. SKIN: No issues reported. ANTHROPOMETRICS: Current Wt: 88.7 kg, BMI: 28.9 kg/m2. IBW: 72.73 kg (118% IBW) ESTIMATED NEEDS: Calories: 8743-6874 kcal/day (25-30 kcal/kg BW) Protein: 69-103 g/day (0.8-1.2 g/kg BW) Fluid: Approx. 2155 mL (25 mL/kg BW) NUTRITION DIAGNOSIS: 1) Inadequate oral intake related to inability to consume sufficient energy, as evidenced by NPO/vent status, altered GI function.--IMPROVING. Pt extubated, diet advanced to stimulation. INTERVENTION: 1) Continue to advanced diet as able per speech therapy recommendations. MONITOR/EVALUATE: Diet advance/tolerance, PO intake, labs, GI/nutrition status. Follow per high nutrition risk guidelines.
--- NOTE | 2017-04-25 14:19 | NUR ---
Evaluation completed. Please go to "Notes" then click on "Assessments and Notes" (bottom left corner of screen). Then select appropriate discipline tab on top of screen.
--- NOTE | 2017-04-25 14:42 | NUR ---
Social Work: Initial Assessment/Multidisciplinary Rounds D: Per EMR review, pt is a 62 year old male admitted for angioedemia tongue. Pt is Medicare with no supplement, LTC or VA benefits. Pt states his PCP is through [facility]. NOK is Nazario Lew, son, . Advanced directives not completed- information provided to patient. Readmit score is low, 2/8. Pt discussed in multidisciplinary rounds. Pt is currently in CCU with discharge needs unknown. Capacity for self-care not discussed at this time. BOBBIN CLEANER met with the patient and family at bedside. Sw role explained, contact information and d/c planning checklist provided. See initial assessment. Pt lives in [place] in a travel trailer with 2 steps to enter. Pt uses no DME, is I with all self-care and ADLs and continues to drive. Pt has never had HH or skilled rehab. Pt anticipates discharge home when ready however family is receptive to discharge planning if needs arise. Pt's son is the identified support person. A: Pt who is I at baseline. P: Evolving; BOBBIN CLEANER to continue to follow to assess pt's discharge needs and to coordinate necessary referrals for safe d/c. TONY Osorio Addendum: 04/25/17 at 1446 by PENNY WALKER Amended: Links added.
[2017-04-25] MEDS: Ondansetron 2 mg/mL 2 mL Inj IVPUSH PRN (15:46)
--- NOTE | 2017-04-25 16:26 | PROG NOTE ---
[address] [address] PROGRESS NOTE PATIENT: ROYA ZAMORANO : 1955 MR#: [id number] ADMIT: 04/23/2017 JOB ID: [id number] DATE: 04/25/2017 The patient is a 62-year-old man presenting to the hospital with angioedema requiring intubation and mechanical ventilation on April 23, 2017. INTERVAL HISTORY: The patient seems to be doing better today with regards to the edema of the tongue although his neck still appears to be swollen. Hemodynamically stable. REVIEW OF SYSTEMS: Could not be obtained. PHYSICAL EXAMINATION: Vital signs reviewed. Afebrile. FiO2 40%, PEEP of 5. General: He is intubated on sedation but awake. Tongue size appears normal but he still has swelling around the neck. He does have a cuff leak on checking and is doing well on a pressure support trial currently. Chest x-ray from April [address] from April 23 also reviewed. ASSESSMENT AND RECOMMENDATIONS: 1. Angioedema--most likely secondary to cocaine. 2. Acute respiratory failure secondary to number one. 3. Polysubstance abuse. A 62-year-old man with history of polysubstance abuse presenting with acute onset airway edema and respiratory failure secondary to that, requiring mechanical ventilation since April 23. He has been on Solu-Medrol, Benadryl, H2 juan carlos for the last couple of days and tongue swelling has visibly reduced. He now has a good cuff leak although extrinsically he still has some neck swelling. He did well on his pressure support trial today, and I think he is ready to be extubated. We requested anesthesia to be present for extubation in case he has problems and Dr. Hope is available. We will go ahead and extubate him. He is on appropriate DVT and GI prophylaxis and he is a FULL CODE. His sister was at the bedside and was updated. I am going to put in an order for racemic epinephrine p.r.n. just in case he has difficulties with stridor or other airway issues. Critical care time, 40 minutes.
--- NOTE | 2017-04-25 18:34 | PCM.PNMED ---
Subjective Date of Service Apr 25, 2017 Subjective Subjective: Patient slightly more awake this morning able to answer yes and no questions, however he remains quite sedated. At times unable to follow verbal commands. Events Overnight: No acute events overnight. ROS: Due to the patient being intubated and sedated, a review of systems was unable to be obtained. Exam Vital Signs Vital Sign - Last Date Time Temp Pulse Resp B/P Pulse Ox O2 Delivery O2 Flow Rate FiO2 04/25/17 12:30 36.8 93 12 162/75 93 Room Air 04/25/17 11:14 40 Intake and Output 04/24/17 04/24/17 04/25/17 Cumulative From/Thru 15:00 23:00 07:00 04/23/17 02:02 - 04/25/17 05:35 Intake Total 1360 ml 1851 ml 6736 ml Output Total 1100 ml 1400 ml 3290 ml Balance 260 ml 451 ml 3446 ml Intake Oral 0 ml 0 ml IV Total 1360 ml 1851 ml 6736 ml Output Urine Total 1050 ml 1400 ml 3160 ml Gastric Drainage Total 50 ml 130 ml # Bowel Movements 0 0 0 Exam General: Sedated, breathing assisted with ventilation, nasogastric tube in place , well-developed, well-nourished HEENT: Normocephalic, atraumatic. External ears without defect. Pupils equal, round, and reactive to light and accommodation. Anicteric sclerae, moist conjunctivae. Severe swelling of the anterior neck between the parotid and cricoid cartilage significantly improved. Tongue now within the mouth neck on the right soft compressible, still moderate edema on the left side of the neck. Cardiovascular: Regular rate and rhythm with no murmurs, rubs, or gallops appreciated Pulmonary: Patient breathing appropriately on the vent. Coarse breath sounds due to ventilation. Abdomen: Bowel tones present. Soft, nontender, nondistended. Extremities: No clubbing, cyanosis Skin: Normal temperature, turgor, and texture; no rash, ulcers, or subcutaneous nodules appreciated. Neurological: Unable to assess due to ventilation status Psychiatric: Unable to assess due to ventilation status IVs and Medications IV Fluids 1450 mL normal saline delivered with IV medications. Medications Reviewed: Medications were reviewed in detail Medications High-risk medications include: Fentanyl Propofol Lorazepam Lab and Diagnostics Result Diagram: 04/25/17 0230 04/25/17 0230 Microbiology MRSA screen negative X-Rays, CTs and MRIs CT NECK SOFT TISSUES WITH CONTRAST IMPRESSION: 1. ET and enteric tube in place. There are secretions and possible mild swelling in the oropharynx and nasopharynx. 2. There is soft tissue swelling and edema between the parotid and submandibular glands bilaterally. The glands and cells appear normal. This finding may account for the clinically apparent swelling. No drainable fluid collections. Dictated by: Juan Francisco Adam M.D. on 04/23/2017 at 11:27 Approved by: Juan Francisco Adam M.D. on 04/23/2017 at 11:41 X-RAY CHEST ONE VIEW, PORTABLE IMPRESSION: ET tube at the superior margin of normal positioning. Shallow inspiration. Dictated by: Juan Francisco Adam M.D. on 04/23/2017 at 8:16 Approved by: Juan Francisco Adam M.D. on 04/23/2017 at 8:16 . Assessment & Plan 62 year old gentleman with a history of anxiety, depression and prior psychiatric admission for suicidal ideation in 2011 who presented to the ED with the complaint of sudden onset of tongue swelling. Intubated in the ED and admitted to the CCU for further evaluation and management of angioedema. Extubated on 04/25. Acute Respiratory Failure secondary to Angioedema, acute. Present on admission. Active. -Uncertain etiology. Possible secondary to inhaled Cocaine (urine tox positive) -Patient denied change in diet or new medications. Current meds: Metoprolol ( Lopressor), Effexor, and Seroquel. Denied known allergies, urticaria, or systemic symptoms. -upon arrival patient received 1mg epinephrine, 50mg diphenhydramine, 20mg dexamethasone, ranitidine 20mg, racemic epinephrine with modest improvement. -Continue Solu-medrol 125mg IV q6h, diphenhydramine 25 mg IV BID , and famotidine 20mg q12 -Improved HEENT swelling with small air leak around ET tube on 04/24 -04/25 patient extubated breathing fine on 2 L O2, vital stable, then downgraded to PCC. Depression, chronic. Present on admission. Presumed Stable. -Patient with history of unspecified depressive disorder as well as remote diagnosis of bipolar disorder. Psychiatric admission in 2014 for suicidal ideation. -Reported medications: Effexor and Seroquel. -Home Effexor restarted, continue to hold Seroquel Anxiety, chronic. Present on admission. Presumed Stable. - Continue to hold Seroquel - Effexor restarted 04/24 - Lorazepam for anxiety PRN Hypertension, chronic. Present on admission. Active. -BP 150s systolic. -Metoprolol restarted 25 mg twice a day PRN: Acetaminophen-fever/headache/mild/moderate pain Antiemetics, as needed Bowel regimen, as needed. Disposition: Patient's angioedema is improved today, patient extubated, will re- evaluate daily with anticipated DC in 1-2 days depending upon clinical course. GI Prophylaxis: H2 juan carlos VTE Prophylaxis: Sub-Q Heparin (Unfractionated) VTE Mechanical Devices: Intermittant Pneumatic CD Resuscitation Status: CPR: Attempt Resuscitation Attending Statement The patient was seen and examined together with Dr. Jenkins on 04/25/17 and I have added additional information to the note above. Giacomo Jenkins DO Apr 25, 2017 16:46 Denise Harley DO Apr 26, 2017 20:33
--- NOTE | 2017-04-25 18:50 | NUR ---
Status change / Diet Assumed care from Fabienne Lundy RN at 1615. Pt is confused and disoriented pt easy to reorient. VSS. Tolerated pureed diet well. No overt complications noted. Pt status down graded to PCC/Tele. Family at the bedside providing support and comfort.
[2017-04-26] VITALS (7 sets, daily range): BP systolic 141–161; BP diastolic 75–84; PULSE 53–68; RESP 15–20; O2SAT 94–97
[2017-04-26] MEDS: Ondansetron 2 mg/mL 2 mL Inj IVPUSH PRN (00:30)
[2017-04-26] MEDS: Heparin 5,000 Unit/mL Inj SUBQ SCH ×4 (00:30→23:50)
[2017-04-26 02:51] LABS: Mean Corpuscular Hemoglobin 27.3 pg (27.0-35.0); Mean Corpuscular Volume 82.3 fL (81-100)
[2017-04-26] MEDS: Chlorhexidine 0.12% 15 mL Oral Solution MT SCH ×6 (03:09→23:48)
[2017-04-26] MEDS: MethylprednisoLONE Sodium Succinate 62.5 mg/mL 2 mL Inj IVPUSH SCH (04:15)
[2017-04-26] MEDS: 0.9% Sodium Chloride 1,000 ML IV SCH (05:10)
[2017-04-26] MEDS ORDERED: Furosemide 10 mg/mL 2 mL Inj IVPUSH ONE (07:00)
[2017-04-26] MEDS ORDERED: MethylprednisoLONE Sodium Succinate 62.5 mg/mL 2 mL Inj IVPUSH SCH (08:30)
--- NOTE | 2017-04-26 09:49 | PCM.PNMED ---
Subjective Date of Service Apr 26, 2017 Subjective Subjective: Patient is awake and oriented this morning, he states that he did take cocaine, and has a previous history of doing so however the last incidence was many years ago. He states that cocaine has never had this affect on him in the past. He became teary-eyed and expressed extreme gratitude for the work that the doctors had done for him. Other than minor chest discomfort the patient is feeling well and has no complaints. Events Overnight: No acute events overnight. ROS: Minor chest discomfort. Denies fever/chills, nausea/vomiting, headache, weakness, abdominal pain, chest pain, shortness of breath, increased swelling in hands or feet. Exam Vital Signs Vital Sign - Last Date Time Temp Pulse Resp B/P Pulse Ox O2 Delivery O2 Flow Rate FiO2 04/26/17 03:24 36.6 68 15 151/79 94 Nasal Cannula 1.00 04/25/17 11:14 40 Intake and Output 04/25/17 04/25/17 04/26/17 Cumulative From/Thru 15:00 23:00 07:00 04/23/17 02:02 - 04/26/17 06:14 Intake Total 1227 ml 1148 ml 9111 ml Output Total 500 ml 550 ml 4340 ml Balance 727 ml 598 ml 4771 ml Intake Oral 100 ml 100 ml IV Total 1227 ml 1048 ml 9011 ml Output Urine Total 500 ml 550 ml 4210 ml Gastric Drainage Total 130 ml # Bowel Movements 0 Exam General: No acute distress, well-developed, well-nourished Head: Normocephalic, atraumatic. External ears without defect. Eyes: Pupils equal, round, and reactive to light and accommodation. Anicteric sclerae, moist conjunctivae. Neck: Normal range of motion, minor residual swelling in the anterior portion of the neck. Cardiovascular: Regular rate and rhythm with no murmurs, rubs, or gallops appreciated Pulmonary: Clear to auscultation bilaterally with no crackles, wheezes, or rhonchi. Normal respiratory effort with no use of accessory muscles. Abdomen: Bowel tones present. Soft, nontender, nondistended. Extremities: No clubbing, cyanosis, edema Skin: Normal temperature, turgor, and texture; no rash, ulcers, or subcutaneous nodules appreciated. Neurological: Cranial nerves grossly intact. Reflexes, coordination, and sensory function within normal limits. Normal muscle strength, tone, and bulk. Psychiatric: Normal mood and affect. Alert and oriented to person, place, and time IVs and Medications IV Fluids 650 mL normal saline to verify the medications. Medications Reviewed: Medications were reviewed in detail Medications High-risk medications include: Lorazepam Lab and Diagnostics Result Diagram: 04/26/1723404/26/17234 Microbiology MRSA screen negative X-Rays, CTs and MRIs CT NECK SOFT TISSUES WITH CONTRAST IMPRESSION: 1. ET and enteric tube in place. There are secretions and possible mild swelling in the oropharynx and nasopharynx. 2. There is soft tissue swelling and edema between the parotid and submandibular glands bilaterally. The glands and cells appear normal. This finding may account for the clinically apparent swelling. No drainable fluid collections. Dictated by: Juan Francisco Adam M.D. on 04/23/2017 at 11:27 Approved by: Juan Francisco Adam M.D. on 04/23/2017 at 11:41 X-RAY CHEST ONE VIEW, PORTABLE IMPRESSION: ET tube at the superior margin of normal positioning. Shallow inspiration. Dictated by: Juan Francisco Adam M.D. on 04/23/2017 at 8:16 Approved by: Juan Francisco Adam M.D. on 04/23/2017 at 8:16 . Assessment & Plan 62 year old gentleman with a history of anxiety, depression and prior psychiatric admission for suicidal ideation in 2011 who presented to the ED with the complaint of sudden onset of tongue swelling. Intubated in the ED and admitted to the CCU for further evaluation and management of angioedema. Extubated on 04/25. Acute Hypercapnic Respiratory Failure secondary to Angioedema, acute. Present on admission. Active. -Uncertain etiology. Possible secondary to inhaled Cocaine (urine tox positive) -Patient denied change in diet or new medications. Current meds: Metoprolol ( Lopressor), Effexor, and Seroquel. Denied known allergies, urticaria, or systemic symptoms. -upon arrival patient received 1mg epinephrine, 50mg diphenhydramine, 20mg dexamethasone, ranitidine 20mg, racemic epinephrine with modest improvement. -Mild residual angioedema, Continue Solu-medrol 125mg IV q12h, diphenhydramine 25 mg IV BID , and famotidine 20mg q12, Decadron discontinued, tapered down as tolerated -04/25 patient extubated breathing fine on 2 L O2, vital stable, then downgraded to [facility] -Breathing fine on room air, Depression, chronic. Present on admission. Presumed Stable. -Patient with history of unspecified depressive disorder as well as remote diagnosis of bipolar disorder. Psychiatric admission in 2014 for suicidal ideation. -Reported medications: Effexor and Seroquel. -Home Effexor restarted, continue to hold Seroquel Anxiety, chronic. Present on admission. Presumed Stable. - Continue to hold Seroquel - Effexor restarted 04/24 - Lorazepam for anxiety PRN Hypertension, chronic. Present on admission. Active. -BP 150s systolic. -IV fluids discontinued -Metoprolol restarted 25 mg twice a day -20 mg Lasix given once IV due to minor fluid overload PRN: Acetaminophen-fever/headache/mild/moderate pain Antiemetics, as needed Bowel regimen, as needed. Disposition: Patient's angioedema is improved today, patient extubated, will re- evaluate daily with anticipated DC in 1-2 days depending upon clinical course. GI Prophylaxis: H2 juan carlos VTE Prophylaxis: Sub-Q Heparin (Unfractionated) VTE Mechanical Devices: Intermittant Pneumatic CD Resuscitation Status: CPR: Attempt Resuscitation Attending Statement The patient was seen and examined together with Resident/House-staff on 04/26/17 and I agree with the history, exam and plan as outlined in the note above. Giacomo Jenkins DO Apr 26, 2017 09:48 Santos Rosado Apr 26, 2017 17:09
[2017-04-26] MEDS: Famotidine Inj 20 MG in IV Premix 1 EACH IV SCH (10:00)
--- NOTE | 2017-04-26 11:38 | PROG NOTE ---
[address] [address] PROGRESS NOTE PATIENT: ROYA ZAMORANO : 1955 MR#: [id number] ADMIT: 04/23/2017 JOB ID: [id number] DATE: 04/26/2017 PULMONARY PROGRESS NOTE: The patient is a 62-year-old man with history of polysubstance abuse presenting to the hospital with angioedema and acute respiratory failure on April 23, 2017. INTERVAL HISTORY: He was extubated yesterday and has been doing well from a respiratory standpoint. In fact, the swelling on his neck looks good today, better than yesterday, and he is eating without difficulty. He still has some hoarseness but denies any chest pain, shortness of breath, fevers, or chills. REVIEW OF SYSTEMS: As above. PHYSICAL EXAMINATION: Vital signs reviewed. He is afebrile. He is on 1 L nasal cannula, saturating in the mid 90s. General: Alert, oriented, sitting up in bed, speaking in full sentences. Neck swelling is down significantly, and neck looks almost back to normal, as does his tongue, since yesterday. LABORATORIES: Reviewed. ASSESSMENT: 1. Angioedema -- attributed to cocaine, resolved. 2. Acute hypoxic respiratory failure -- extubated on April 25. 3. Polysubstance abuse. RECOMMENDATIONS: I spoke to the patient extensively yesterday in the presence of his son and indicated that cocaine was the likely cause of this episode and strongly discouraged him from using this again. He seemed to understand and agreed. With regards to his meds, I think we can cut back the Solu-Medrol significantly to 125 once daily even. I would change the Benadryl to p.r.n. and stop the famotidine completely. If the patient remains stable, we should try to see him off steroids and stable in the hospital for 24 hours before discharge. I do not think we need to continue the steroids at discharge, however. Pulmonary service is going to sign off. Please call us for any additional questions.
--- NOTE | 2017-04-26 17:47 | NUR ---
oxygenation/mobility/carrasquillo/affect upon assessment oxygen removed and pt adrián well satting mid to high 90's. Pt SBA up to commode for BM, pt tolerated well and carrasquillo removed. Pt has a bizarre affect and says things that don't always make sense but is alert and oriented x 3
--- NOTE | 2017-04-26 22:03 | NUR ---
HS Lopressor pt HR was 47-52 this evening held HS dose of Lopressor 25mg PO MD gamboa
[2017-04-27 03:07] VITALS: BP 156/77; PULSE 54; RESP 20; O2SAT 97
[2017-04-27] MEDS: Chlorhexidine 0.12% 15 mL Oral Solution MT SCH ×5 (04:14→21:35)
--- NOTE | 2017-04-27 06:09 | NUR ---
activity/oxygen moved pt to a different room he ambulated to that room with 1pa tolerating well, pt on RA all night SpO2 mid 90s, pt clearing his throat all night sometimes productive.
[2017-04-27 07:24] VITALS: BP 156/95; PULSE 52; RESP 20; O2SAT 97
[2017-04-27] MEDS ORDERED: MethylprednisoLONE Sodium Succinate 40 mg/mL Inj IVPUSH SCH (08:30)
[2017-04-27] MEDS: Heparin 5,000 Unit/mL Inj SUBQ SCH ×3 (09:21→23:49)
[2017-04-27 10:09] VITALS: PULSE 46
--- NOTE | 2017-04-27 11:19 | PCM.PNMED ---
Subjective Date of Service Apr 27, 2017 Subjective Subjective: Patient states that he is feeling well today, concerned about discharge, we let him know that we will want to watch him 24 hours off of steroids before sending him home. If all goes well he may be discharged tomorrow. Events Overnight: No acute events overnight. ROS: Denies fever/chills, nausea/vomiting, headache, weakness, abdominal pain, chest pain, shortness of breath, increased swelling in hands or feet. Exam Vital Signs Vital Sign - Last Date Time Temp Pulse Resp B/P Pulse Ox O2 Delivery O2 Flow Rate FiO2 04/27/17 10:09 46 04/27/17 07:24 36.7 20 156/95 97 Room Air 04/26/17 03:24 1.00 04/25/17 11:14 40 Intake and Output 04/26/17 04/26/17 04/27/17 Cumulative From/Thru 15:00 23:00 07:00 04/23/17 02:02 - 04/27/17 06:23 Intake Total 690 ml 320 ml 76290 ml Output Total 975 ml 900 ml 6215 ml Balance -285 ml -580 ml 3906 ml Intake Oral 690 ml 320 ml 1110 ml IV Total 9011 ml Output Urine Total 975 ml 900 ml 6085 ml Gastric Drainage Total 130 ml # Bowel Movements 1 1 Exam General: No acute distress, well-developed, well-nourished Head: Normocephalic, atraumatic. External ears without defect. Eyes: Pupils equal, round, and reactive to light and accommodation. Anicteric sclerae, moist conjunctivae. Neck: Normal range of motion, negligible swelling in the anterior portion of the neck. Cardiovascular: Regular rate and rhythm with no murmurs, rubs, or gallops appreciated Pulmonary: Clear to auscultation bilaterally with no crackles, wheezes, or rhonchi. Normal respiratory effort with no use of accessory muscles. Abdomen: Bowel tones present. Soft, nontender, nondistended. Extremities: No clubbing, cyanosis, edema Skin: Normal temperature, turgor, and texture; no rash, ulcers, or subcutaneous nodules appreciated. Neurological: Cranial nerves grossly intact. Reflexes, coordination, and sensory function within normal limits. Normal muscle strength, tone, and bulk. Psychiatric: Anxious and blunted affect. Alert and oriented to person, place, and time IVs and Medications Medications Reviewed: Medications were reviewed in detail Medications High-risk medications include: Ativan Lab and Diagnostics Result Diagram: 04/26/17 0235 04/27/17 0330 Microbiology MRSA screen negative X-Rays, CTs and MRIs CT NECK SOFT TISSUES WITH CONTRAST IMPRESSION: 1. ET and enteric tube in place. There are secretions and possible mild swelling in the oropharynx and nasopharynx. 2. There is soft tissue swelling and edema between the parotid and submandibular glands bilaterally. The glands and cells appear normal. This finding may account for the clinically apparent swelling. No drainable fluid collections. Dictated by: Juan Francisco Adam M.D. on 04/23/2017 at 11:27 Approved by: Juan Francisco Adam M.D. on 04/23/2017 at 11:41 X-RAY CHEST ONE VIEW, PORTABLE IMPRESSION: ET tube at the superior margin of normal positioning. Shallow inspiration. Dictated by: Juan Francisco Adam M.D. on 04/23/2017 at 8:16 Approved by: Juan Francisco Adam M.D. on 04/23/2017 at 8:16 . Assessment & Plan 62 year old gentleman with a history of anxiety, depression and prior psychiatric admission for suicidal ideation in 2011 who presented to the ED with the complaint of sudden onset of tongue swelling. Intubated in the ED and admitted to the CCU for further evaluation and management of angioedema. Extubated on 04/25. Acute Hypercapnic Respiratory Failure secondary to Angioedema, acute. Present on admission. Active. -Uncertain etiology. Possible secondary to inhaled Cocaine (urine tox positive) -Patient denied change in diet or new medications. Current meds: Metoprolol ( Lopressor), Effexor, and Seroquel. Denied known allergies, urticaria, or systemic symptoms. -upon arrival patient received 1mg epinephrine, 50mg diphenhydramine, 20mg dexamethasone, ranitidine 20mg, racemic epinephrine with modest improvement. -Angioedema resolved, Solu-medrol 125mg on 04/26. Discontinued 04/27. diphenhydramine 25 mg IV PRN -Patient currently breathing fine on room air, no residual swelling, continue to monitor 24 hours off steroids. -He start home meds Depression, chronic. Present on admission. Presumed Stable. -Patient with history of unspecified depressive disorder as well as remote diagnosis of bipolar disorder. Psychiatric admission in 2014 for suicidal ideation. -Reported medications: Effexor and Seroquel. -Home Effexor and Seroquel restarted Anxiety, chronic. Present on admission. Presumed Stable. - Effexor restarted 04/24 500 mg BID - Seroquel restarted 04/27 400 mg at bedtime - Lorazepam for anxiety PRN Hypertension, chronic. Present on admission. Active. -BP 150s systolic. -Metoprolol stopped due to low heart rate PRN: Acetaminophen-fever/headache/mild/moderate pain Antiemetics, as needed Bowel regimen, as needed. Of note: I called one of the patient's care providers, Elvie Rasmussen with [facility], she states that he is currently on venlafaxine 150 mg twice a day as well as Seroquel 400 mg at bedtime Disposition: Patient's angioedema is improved today, will re-evaluate daily with anticipated DC in 24 hours depending upon clinical course. GI Prophylaxis: H2 juan carlos VTE Prophylaxis: Sub-Q Heparin (Unfractionated) VTE Mechanical Devices: Intermittant Pneumatic CD Resuscitation Status: CPR: Attempt Resuscitation Attending Statement The patient was seen and examined together with Dr. Jenkins on and I agree with the history, exam and plan as outlined in the note above. Giacomo Jenkins DO Apr 27, 2017 11:19 Santos Rosado Apr 27, 2017 17:27
[2017-04-27 11:30] VITALS: BP 151/86; PULSE 55; RESP 20; O2SAT 96
--- NOTE | 2017-04-27 14:27 | NUR ---
NUTRITION FOLLOW UP: ASSESS: 62 YO male admitted to CCU with sudden onset of tongue swelling, requiring intubation. Pt extubated 04/25 with diet advance to stimulation. Today Speech Therapy advanced his diet to dysphagia mechanical, nectar thick liquids. PO intake 50% - 100% trays. PMHx: Depression, bipolar disorder, anxiety, polysubstance abuse, HTN, eating disorder, previous suicide attempt. DIET: As noted above. LABS: Reviewed. BUN 29, Cr 0.65, Glu 120, Ca 8.4. MEDICATIONS: Reviewed. Solu-medrol. GI: BM x 1 (04/26). SKIN: No issues reported. Yobani 22 today. ANTHROPOMETRICS: Current Wt: 88.7 kg, BMI: 28.9 kg/m2. IBW: 72.73 kg (118% IBW) ESTIMATED NEEDS: Calories: 3132-8686 kcal/day (25-30 kcal/kg BW) Protein: 69-103 g/day (0.8-1.2 g/kg BW) Fluid: Approx. 2155 mL (25 mL/kg BW) NUTRITION DIAGNOSIS: 1) Inadequate oral intake related to inability to consume sufficient energy, as evidenced by NPO/vent status, altered GI function - RESOLVED. INTERVENTION: 1) Continue to advanced diet as able per speech therapy recommendations. MONITOR/EVALUATE: Diet advance/tolerance, PO intake, labs, GI/nutrition status. Follow per moderate nutrition risk guidelines.
--- NOTE | 2017-04-27 14:40 | NUR ---
Difficulty Swallowing At 1430hrs patient reported having some difficulty swallowing stating, "it doesn't feel like it's going down". patient expressed concerns that his throat may be swelling again. patient able to speak in full sentences, lungs are clear/equal bilaterally. patient's diet was just advanced from stim diet to a dysphagia/mech diet; first meal with new diet order. patient has been anxious about swallowing since admission. I advised patient to stop eating, ice chips are okay. Dr Levy notified and will come by and reassess later today. continue to monitor.
[2017-04-27 16:30] VITALS: BP 150/85; PULSE 50; RESP 20; O2SAT 96
--- NOTE | 2017-04-27 16:31 | NUR ---
Social Work: Continued Discharge Planning/Multidisciplinary Rounds D: Pt discussed in multidisciplinary rounds. The patient is not medically stable for discharge; capacity for self-care addressed. Pt is I with ADL and could also benefit from some home health at discharge for RN care. Per PT, pt could also benefit from home PT and a walker. has placed order for case management to follow up re: HH. GAS STATION ATTENDANT acknowledges order. GAS STATION ATTENDANT met with the patient at bedside to review discharge recommendations. GAS STATION ATTENDANT explained HH Services to the patient and offered a HH CHOICE LIST. The patient states he has never had this service and does not feel that he will need this. The patient went on further to state that if he were to need physical therapy he would "just go somewhere and do it." GAS STATION ATTENDANT introduced the idea of using a piece of DME for extra support specifically a walker. The patient states that "I don't need it and I won't use it even if I had it." Pt declined to have GAS STATION ATTENDANT arrange for a walker delivery. Patient states that he intends to discharge home with one of his kids to transport. He identifies no concerns about discharge. He provided verbal consent for GAS STATION ATTENDANT to speak with his son, Robert. t/c to Robert. GAS STATION ATTENDANT reviewed discharge recommendations with him for HH and a walker. He states that he is not surprised that the patient declined. He states that he is not "that worried" about the patient discharging home without supportive services and that he and his sister will be checking in with him daily. He has offered the patient the option to come stay with him for several days post-discharge. The patient has not yet decided if he wants this. A: Pt who is declining home health and for GAS STATION ATTENDANT to arrange for him to use a walker. P: Anticipate pt to discharge home via POV once medically stable; pt is declining the delivery/use of a walker and HH recommendations. GAS STATION ATTENDANT to continue to follow to assess for discharge needs. TONY Osorio
--- NOTE | 2017-04-27 16:55 | NUR ---
Social Work: Chemical Dependency Assessment Reason for Referral: Pt discussed in multidisciplinary rounds; pt will require a CD assessment. Order placed. ANNEALER HELPER acknowledges order. Pt's UDS was positive for Cocaine, Marijuana and Benzodiazepines. ANNEALER HELPER met with the patient at bedside to discuss chemical dependency issues and resources. The patient confirms that he had used cocaine and marijuana prior to admission. Pt states he uses marijuana regularly but the cocaine was just something he "dabbled with." Pt states that he bough $50 worth of cocaine from a friend/coworker last week and states that he had not used for several years prior to this. "It just happen to be there so I bought some." Pt states that he has been snorting but the day of admission he had decided to smoke it and he attributes this to he reason from admission. Pt states that "I'm done with it." CD History: Pt states he smokes marijuana daily. He does not consider this to be a substance that he needs to quit. The patient states that he has been sober from Cocaine use for "many years" prior to buying the cocaine that he had been using the last week. The patient has never experienced any kind of withdrawal symptoms and denies any other substance use. He has never been to treatment. MH History/Suicidal ideation: Pt denies any Mental health history and states that he has never experienced any suicidal ideation, plan or intent, current or past. Natural Supports: pt considers his kids to be his biggest supports. Motivation for Change/Perceptions of use: Pt has a limited insight into his substance use and has no desire to enter treatment. Disposition: pt is declining community resources for CD treatment. The patient also declined a bedside assessment from [facility]. Pt anticipated to discharge home when medically stable. ANNEALER HELPER to continue to follow. TONY Osorio
--- NOTE | 2017-04-27 18:06 | NUR ---
Swallowing no changes in swallow after issue during lunch. (see previous note). patient able to speak in full sentences, no obvious oral swelling noted, able to clear secretions on own, and bedside RN swallow assessment negative. patient reports increased anxiety with swallowing and eating related to current medical situation. reassured patient that he is improving as expected and the hospital is the best spot to challenge is oral intake. patient verbalized understanding. continue to monitor and encourage PO intake.
[2017-04-27 20:15] VITALS: BP 163/83; PULSE 60; RESP 18; O2SAT 98
[2017-04-28 00:10] VITALS: BP 133/82; PULSE 58; RESP 17; O2SAT 97
[2017-04-28] MEDS: Chlorhexidine 0.12% 15 mL Oral Solution MT SCH ×4 (00:30→12:50)
[2017-04-28 05:20] VITALS: BP 148/74; PULSE 70; RESP 17; O2SAT 97
--- NOTE | 2017-04-28 05:58 | NUR ---
Nurse Note NOC Shift Pt transferred here from [facility] , arrived at 1133 via wheelchair. He is alert and oriented x4, per report he gets anxious, and forgetful but not noted during the shift, he is able to communicate needs. He denies chest pain or SOB, but reports some sore throat which he relates to intubation. Pt voids via urinal, he is on nectar thick liquids with no straw. He appeared to be asleep most of the night.
[2017-04-28] MEDS ORDERED: Potassium Chloride 20 mEq SR Tablet PO ONE (08:05)
[2017-04-28 08:10] VITALS: BP 150/88; PULSE 55; PULSE 60; RESP 18; O2SAT 96
[2017-04-28] MEDS: Heparin 5,000 Unit/mL Inj SUBQ SCH (08:39)
--- NOTE | 2017-04-28 11:29 | PCM.DIMED ---
Discharge Instructions Date of Service Apr 28, 2017 Dates of Hospitalization Apr 23, 2017 at 03:26 Discharge Diagnosis Discharge Diagnosis # Acute Hypercapnic Respiratory Failure secondary to Angioedema, acute. Present on admission. Active. -Uncertain etiology. Possible secondary to inhaled Cocaine (urine tox positive) Depression, chronic. Present on admission. Presumed Stable. Anxiety, chronic. Present on admission. Presumed Stable. Hypertension, chronic. Present on admission. Active. Diet Discharge Diet: Heart Healthy Activity Discharge Activity: Limited until seen by PCP Call your provider Call your provider for: Fever or Chills, Shortness of breath, Bleeding, Chest pain, Vomitting, Excessive diarrhea, Weakness (unilateral) Patient Instructions Patient Instructions you were hospitalized due to acute respiratory failure due to angioedema secondary to cocaine . Please do no take cocaine and can cause airway obstruction and to you . follow up with PCP in 1 week . Follow-up with PCP in: 1 week Clemente Barajas MD Apr 28, 2017 11:29
[2017-04-28] MEDS ORDERED: QUET100T69 PO (11:42)
[2017-04-28] MEDS ORDERED: VENL75TA3 PO (11:42)
--- NOTE | 2017-04-28 12:13 | NUR ---
Social Work: Discharge Data: Pt is on day 5 of hospitalization. EMR reviewed. Pt discussed in multidisicplinary rounds. MD states pt likely to d/c today. D/C orders are in. No d/c planning needs at this time. Pt declining CD resources and HH and walker. ORE PUNCHER will continue to follow if needs arise. Assessment: Pt who is independent at baseline. Plan: Pt will d/c home via POV today. No d/c planning needs at this time. Pt declining CD resources and HH and walker. ORE PUNCHER will continue to follow if needs arise. TONY Peralta
--- NOTE | 2017-04-28 16:54 | NUR ---
Discharge Reviewed DC instructions with patient and Son. Stated understanding. All belongings taken. Pt requested to ambulate out to private vehicle to home with son. W/ch brought, not needed.
--- NOTE | 2017-04-28 21:41 | PCM.DC.MED ---
Discharge Summary Date of Service Apr 28, 2017 Dates of Hospitalization Date of Hospital Admission Apr 23, 2017 at 03:26 Date of Discharge: Apr 28, 2017 Providers: Admitting Physician: Viktor Springer MD Primary Care Physician: Nopamalia Attending Physician: Clemente Acevedo MD Diagnosis at Time of Discharge Diagnosis at Time of Discharge # Acute Hypercapnic Respiratory Failure secondary to Angioedema, acute. Present on admission. Active. -Uncertain etiology. Possible secondary to inhaled Cocaine (urine tox positive) Depression, chronic. Present on admission. Presumed Stable. Anxiety, chronic. Present on admission. Presumed Stable. Hypertension, chronic. Present on admission. Active. Consultations pulm Dr Carmona Procedures XRay, CTs & MRIs CT NECK SOFT TISSUES WITH CONTRAST IMPRESSION: 1. ET and enteric tube in place. There are secretions and possible mild swelling in the oropharynx and nasopharynx. 2. There is soft tissue swelling and edema between the parotid and submandibular glands bilaterally. The glands and cells appear normal. This finding may account for the clinically apparent swelling. No drainable fluid collections. Dictated by: Juan Francisco Adam M.D. on 04/23/2017 at 11:27 Approved by: Juan Francisco Adam M.D. on 04/23/2017 at 11:41 X-RAY CHEST ONE VIEW, PORTABLE IMPRESSION: ET tube at the superior margin of normal positioning. Shallow inspiration. Dictated by: Juan Francisco Adam M.D. on 04/23/2017 at 8:16 Approved by: Juan Francisco Adam M.D. on 04/23/2017 at 8:16 . Brief History per HPI Nasim Lew is a 62 year old male with a history of anxiety, depression and prior psychiatric admission in 2011 for suicidal ideation who presented to the ED for sudden onset of tongue swelling. History obtained via chart review as patient is intubated and sedated on arrival to CCU. The patient stated that he is otherwise healthy and denied difficulty breathing, hives or any other symptoms. He denied any change in medications or diet and was without symptoms when he went to bed. He later woke up due to tongue swelling and decided he better go to the hospital. He denied any known allergies and current medications include Effexor, Seroquel, and Lopressor. In the ED he was afebrile and hemodynamically stable with a SpO2 of 99% on room air. He received 1mg epinephrine, 50mg diphenhydramine, 20mg Decadron, Pepcid 20mg, racemic epinephrine with modest improvement. Subsequently he was intubated without incident in the emergency department. ECG showed sinus rhythm with a rate of 88 and a nonspecific intraventricular conduction delay. Hospital Course 62 year old gentleman with a history of anxiety, depression and prior psychiatric admission for suicidal ideation in 2011 who presented to the ED with the complaint of sudden onset of tongue swelling. Intubated in the ED and admitted to the CCU for further evaluation and management of angioedema. Extubated on 04/25. Acute Hypercapnic Respiratory Failure secondary to Angioedema, acute. Present on admission. Active. -Uncertain etiology. Possible secondary to inhaled Cocaine (urine tox positive) -Patient denied change in diet or new medications. Current meds: Metoprolol ( Lopressor), Effexor, and Seroquel. Denied known allergies, urticaria, or systemic symptoms. -upon arrival patient received 1mg epinephrine, 50mg diphenhydramine, 20mg dexamethasone, ranitidine 20mg, racemic epinephrine with modest improvement. -Angioedema resolved, Solu-medrol 125mg on 04/26. Discontinued 04/27. diphenhydramine 25 mg IV PRN -Patient currently breathing fine on room air, no residual swelling, -He start home meds Depression, chronic. Present on admission. Presumed Stable. -Patient with history of unspecified depressive disorder as well as remote diagnosis of bipolar disorder. Psychiatric admission in 2014 for suicidal ideation. -Reported medications: Effexor and Seroquel. -Home Effexor and Seroquel restarted Anxiety, chronic. Present on admission. Presumed Stable. - Effexor restarted 04/24 500 mg BID - Seroquel restarted 04/27 400 mg at bedtime Hypertension, chronic. Present on admission. Active. -BP 150s systolic. -Metoprolol stopped due to low heart rate Of note: called one of the patient's care providers, Elvie Rasmussen with [facility], she states that he is currently on venlafaxine 150 mg twice a day as well as Seroquel 400 mg at bedtime Disposition: discharged home Exam Vital Signs (Last) Date Time Temp Pulse Resp B/P Pulse Ox O2 Delivery O2 Flow Rate FiO2 04/28/17 08:10 Supplement Oxygen 04/28/17 08:10 36.5 55 18 150/88 96 04/26/17 03:24 1.00 04/25/17 11:14 40 Exam General: No acute distress, well-developed, well-nourished Head: Normocephalic, atraumatic. External ears without defect. Eyes: Pupils equal, round, and reactive to light and accommodation. Anicteric sclerae, moist conjunctivae. Neck: Normal range of motion, negligible swelling in the anterior portion of the neck. Cardiovascular: Regular rate and rhythm with no murmurs, rubs, or gallops appreciated Pulmonary: Clear to auscultation bilaterally with no crackles, wheezes, or rhonchi. Normal respiratory effort with no use of accessory muscles. Abdomen: Bowel tones present. Soft, nontender, nondistended. Extremities: No clubbing, cyanosis, edema Skin: Normal temperature, turgor, and texture; no rash, ulcers, or subcutaneous nodules appreciated. Neurological: Cranial nerves grossly intact. Reflexes, coordination, and sensory function within normal limits. Normal muscle strength, tone, and bulk. Psychiatric: Anxious and blunted affect. Alert and oriented to person, place, and time Test 04/23/17 02:03 04/23/17 04:00 04/23/17 16:50 04/24/17 02:10 Erythrocyte Sedimentation Rate 5mm/hr (0-30) Hold Purple Top Tube Received (Received) Activated Partial Thromboplast Time 22.6sec (22.8-33.0) Hold Blue Top Tube Received (Received) Troponin T 0.010ug/L (0.0-0.011) Hold Red Top Tube Received (Received) Hold Jerome Top Tube Received (Received) Hold [place] Top Tube Received (Received) Total Complement (CH50) 15U/mL (42-60) Hold Urine Received (Received) Urine Opiates Screen Negative Urine Methadone Screen Negative Urine Barbiturates Screen Negative Urine Amphetamines Screen Negative Urine Benzodiazepines Screen Positive Urine Cocaine Metabolite Screen Positive Urine Cannabinoids Screen Positive C1 Esterase Inhibitor <3mg/dL (21-39) Total Creatine Kinase 47U/L (21-232) Test 04/24/17 04:53 04/25/17 02:30 04/26/17 02:35 04/28/17 06:18 Urine Color Yellow (YELLOW) Urine Appearance Clear (CLEAR,HAZY) Urine pH 6.0 (5.0-8.0) Urine Specific [place] 1.025 (1.003-1.035) Urine Protein Negativemg/dL (NEG,TRACE) Urine Glucose (UA) Negativemg/dL (NEGATIVE) Urine Ketones Negativemg/dL (NEGATIVE) Urine Occult Blood Negative (NEGATIVE) Urine Nitrite Negative (NEGATIVE) Urine Bilirubin Negative (NEGATIVE) Urine Urobilinogen Normalmg/dL (NORMAL) Urine Leukocyte Esterase Negative (NEGATIVE) Urine RBC 3-10/hpf (0-2) Urine WBC 0-5/hpf (0-5) Urine Epithelial Cells Few/hpf (NONE-MOD) Urine Crystals None seen (NONE SEEN) Urine Bacteria Few/hpf (NONE-FEW) Urine Hyaline Casts None/lpf (NONE) Urine Granular Casts None seen (NONE SEEN) Urine Waxy Casts None seen (NONE SEEN) Urine Red Blood Cell Casts None seen (NONE SEEN) Urine White Blood Cell Casts None seen (NONE SEEN) Urine Mucus None seen (None Seen) Urine Trichomonas None seen (NONE SEEN) Urine Yeast None (NONE SEEN) Urinalysis Comment None Urine Culture Reflexed Not indicated Neutrophils (%) (Auto) 87.4% (40-74) Lymphocytes (%) (Auto) 8.4% (14-46) Monocytes (%) (Auto) 4.0% (4-12) Eosinophils (%) (Auto) 0% (0-5) Basophils (%) (Auto) 0% (0-3) Prothrombin Time 10.5sec (8.1-12.5) Prothromb Time International Ratio 0.98ratio Phosphorus Level 2.9mg/dL (2.5-4.9) Magnesium Level 1.9mg/dL (1.6-2.6) White Blood Count 6.9th/mm3 (3.8-10.1) Red Blood Count 4.40mil/mm3 (4.40-5.80) Hemoglobin 12.0g/dL (13.8-17.2) Hematocrit 36.2% (41.0-50.0) Mean Corpuscular Volume 82.3fL (81-100) Mean Corpuscular Hemoglobin 27.3pg (27.0-35.0) Mean Corpuscular Hemoglobin Concent 33.1% (32.0-37.0) Red Cell Distribution Width 14.5% (12.3-15.4) Platelet Count 206bil/L (150-400) Total Bilirubin 0.5mg/dL (0.0-1.2) Aspartate Amino Transf (AST/SGOT) 21U/L (0-50) Alanine Aminotransferase (ALT/SGPT) 10U/L (0-44) Alkaline Phosphatase 91U/L (25-160) Total Protein 6.4g/dL (6.4-8.4) Albumin 3.9g/dL (3.4-5.0) Sodium Level 145mEq/L (134-144) Potassium Level 3.2mEq/L (3.5-5.2) Chloride Level 104mEq/L (97-108) Carbon Dioxide Level 27mmol/L (18-29) Blood Urea Nitrogen 27mg/dL (8-27) Creatinine 0.69mg/dL (0.76-1.27) Estimat Glomerular Filtration Rate 123mL/min (>59) Glucose Level 107mg/dL (60-99) Calcium Level 8.5mg/dL (8.5-10.1) Microbiology Results MRSA screen negative Discharge Medications Discharge Medications Quetiapine Fumarate (Quetiapine Fumarate) 100 Mg Tablet 400 MG PO HS Prescribed by: CLEMENTE ACEVEDO MD Venlafaxine (Venlafaxine) 75 Mg Tablet 150 MG PO BID Prescribed by: CLEMENTE ACEVEDO MD Followup Plan Disposition: home Discharge Diet: Heart Healthy Discharge Activity: Limited until seen by PCP Patient Instructions you were hospitalized due to acute respiratory failure due to angioedema secondary to cocaine . Please do no take cocaine and can cause airway obstruction and to you . follow up with PCP in 1 week . Follow-up with PCP in: 1 week Time spent 35 minutes counselling patient and coordinating discharge Clemente Acevedo MD Apr 28, 2017 21:41
== END 2017-04-28 16:40 | disposition home or self-care (01) | DRG 917 ==
LOC: SED 01:54 → CCU 03:26 → PCC 04-25 18:39 → MOC 04-27 23:28
PROVIDERS: ADMIT Hospitalist; ATTEND Hospitalist
PROC: 5A1945Z Respiratory Ventilation, 24-96 Consecutive Hours (ICD-10-PCS; principal; 2017-04-23)
PROC: 0BH17EZ Insertion of Endotracheal Airway into Trachea, Via Natural or Artificial Opening (ICD-10-PCS; 2017-04-23)
PROC: 4A033R1 Measurement of Arterial Saturation, Peripheral, Percutaneous Approach (ICD-10-PCS; 2017-04-24)
DX: T40.5X1A Poisoning by cocaine, accidental (unintentional), initial encounter (principal); J96.02 Acute respiratory failure with hypercapnia; T78.3XXA Angioneurotic edema, initial encounter; I10 Essential (primary) hypertension; F17.200 Nicotine dependence, unspecified, uncomplicated; F32.9 Major depressive disorder, single episode, unspecified; F41.9 Anxiety disorder, unspecified; F19.10 Other psychoactive substance abuse, uncomplicated